=== PATIENT | male | born 1980 | race Hispanic/Latino ===

== ENCOUNTER 2016-04-15 17:18 | Emergency (ER) | payer BC, MEDICAID ==
[2016-04-15 19:23] LABS: Basophils % (Auto) 0.5 % (0.0-1.8); Eosinophils % (Auto) 5.3 % (0.0-4.3); Hematocrit 36.1 % (35.5-45.6); Hemoglobin 11.8 gm/dl (11.8-15.2); Mean Corpuscular HGB Conc 33 % (32-34); Mean Corpuscular Hemoglobin 26 pg (28-32); Mean Corpuscular Volume 80 fl (84-94); Platelet Count 369 K/mm3 (140-440); Red Blood Count 4.52 M/mm3 (3.65-5.03); Red Cell Distribution Width 18.8 % (13.2-15.2); White Blood Count 10.3 K/mm3 (4.5-11.0)
[2016-04-15 19:41] LABS: Alanine Aminotransferase 36 units/L (7-56); Albumin 4.7 g/dL (3.9-5); Albumin/Globulin Ratio 1.3 %; Alkaline Phosphatase 79 units/L (35-129); Anion Gap 20 mmol/L; Bilirubin,Total < 0.2 mg/dL (0.1-1.2); Blood Urea Nitrogen 13 mg/dL (9-20); Calcium 9.6 mg/dL (8.4-10.2); Carbon Dioxide 25 mmol/L (22-30); Glucose 189 mg/dL (75-100); Lipase 68 units/L (13-60); Potassium 3.9 mmol/L (3.6-5.0); Sodium 139 mmol/L (137-145); Total Protein 8.2 g/dL (6.3-8.2)
[2016-04-15 20:08] LABS: Bacteria,Urine 1+ /HPF (Negative); Bilirubin,Urine NEG (Negative); Blood,Urine NEG (Negative); Ketones,Urine TR mg/dL (Negative); Leukocyte Esterase,Urine TR (Negative); Mucus,Urine 1+ /HPF; Nitrite,Urine NEG (Negative); Protein,Urine <15 mg/dL mg/dL (Negative); Urobilinogen,Urine < 2.0 mg/dL (<2.0); WBC,Urine < 1.0 /HPF (0.0-6.0)
[2016-04-15] MEDS ORDERED: ZOFRAN IV ONE (23:08)
[2016-04-15] MEDS ORDERED: DILAUDID IV ONE (23:08)
--- NOTE | 2016-04-15 23:12 | Emergency Department Report ---
HPI - General Chief Complaint: Abdominal Pain Time Seen by Provider: 04/15/16 22:57 - HPI HPI: This is a 36-year-old male who presents to the emergency department from home with complaint of right-sided abdominal pain, nausea, vomiting, diarrhea and fever is been going on since yesterday. Patient has a MAXIMUM TEMPERATURE of 103 but took 1 g of Tylenol around 2 PM and his temperature was still around 99 when he came in through triage. He otherwise has not taken anything else for pain prior to presentation. He has a past medical history of CHF, atrial fibrillation, [id number] diabetes, GERD, gout, previous history of bowel obstruction. He has a past surgical history of pyloroplasty and colon resection, cholecystectomy and appendectomy. While the patient has been here before, he just officially moved up here from [place] 1 week ago and therefore does not have a primary care doctor. He denies any dysuria, discharge , constipation, hematemesis, melanotic or bright red blood per rectum. ED Past Medical Hx - Past Medical History Hx Congestive Heart Failure: Yes Hx Diabetes: Yes Additional medical history: pancreatitis, c-diff, afib, enlarged heart. spinal menengitis. TIA - Surgical History Hx Cholecystectomy: Yes Hx Appendectomy: Yes Additional Surgical History: abd sx 2014 - Social History Smoking Status: Never Smoker Substance Use Type: None - Medications Home Medications: Home Medications Medication Instructions Recorded Confirmed Last Taken Type Ondansetron [Zofran] 4 mg PO Q6HR PRN #20 tablet 04/08/14 02/05/16 1 Day Ago Rx Aspirin [Aspirin BABY CHEW TAB] 81 mg PO QDAY 02/05/16 02/05/16 1 Day Ago History Bethanechol [Urecholine] 25 mg PO Q8HR 02/05/16 02/05/16 1 Day Ago History Buspirone HCl [busPIRone] 15 mg PO QDAY 02/05/16 02/05/16 1 Day Ago History Citalopram Hydrobromide [celeXA] 40 mg PO DAILY 02/05/16 02/05/16 1 Day Ago History Clindamycin [Clindamycin CAP] 300 mg PO Q6H 02/05/16 02/05/16 1 Day Ago History Dicyclomine [Bentyl] 40 mg PO QID #20 tablet 02/05/16 Unknown Rx Fenofibrate [Lofibra] 160 mg PO QDAY 02/05/16 02/05/16 1 Day Ago History Levothyroxine [Synthroid] 25 mcg PO QAM 02/05/16 02/05/16 1 Day Ago History Metoprolol [Lopressor] 25 mg PO BID 02/05/16 02/05/16 1 Day Ago History Nortriptyline HCl [Pamelor] 25 mg PO QDAY 02/05/16 02/05/16 1 Day Ago History Ondansetron [Zofran Odt] 4 mg PO Q8HR #20 tab.rapdis 02/05/16 Unknown Rx Pantoprazole [Protonix] 40 mg PO QDAY 02/05/16 02/05/16 1 Day Ago History Pregabalin [Lyrica] 150 mg PO QDAY 02/05/16 02/05/16 1 Day Ago History Promethazine [Phenergan TAB] 25 mg PO Q6HR PRN 02/05/16 02/05/16 1 Day Ago History QUEtiapine [SEROquel] 300 mg PO BID 02/05/16 02/05/16 1 Day Ago History Ranitidine HCl [Zantac 300 MG TAB] 300 mg PO QPM 02/05/16 02/05/16 1 Day Ago History Ropinirole HCl [Requip] 0.5 mg PO QDAY 02/05/16 02/05/16 1 Day Ago History Tizanidine HCl [Zanaflex] 4 mg PO TID PRN 02/05/16 02/05/16 1 Day Ago History Topiramate [Topamax] 50 mg PO QDAY 02/05/16 02/05/16 1 Day Ago History HYDROcodone/APAP 5-325 [[place] 1 each PO Q6HR PRN #14 tablet 04/16/16 Unknown Rx 5/325] ED Review of Systems ROS: Stated complaint: SEVERE ABD PAIN Other details as noted in HPI Comment: All other systems reviewed and negative Constitutional: chills, fever Eyes: denies: eye pain, eye discharge, vision change ENT: denies: ear pain, throat pain Respiratory: denies: cough, shortness of breath, wheezing Cardiovascular: denies: chest pain, palpitations Gastrointestinal: abdominal pain, nausea, vomiting, diarrhea Genitourinary: denies: urgency, dysuria Musculoskeletal: denies: back pain, joint swelling, arthralgia Skin: denies: rash, lesions Neurological: denies: headache, weakness, paresthesias Physical Exam - Physical Exam Vital Signs: Vital Signs 04/15/16 18:36 Temperature 99.0 F Pulse Rate 110 H Respiratory 18 Rate Blood Pressure 133/99 O2 Sat by Pulse 96 Oximetry Physical Exam: GENERAL: The patient is well-developed well-nourished. HEENT: Normocephalic. Atraumatic. Extraocular motions are intact. Patient has moist mucous membranes. Pupils equal reactive to light bilaterally. NECK: Supple. Trachea is midline. CHEST/LUNGS: Clear to auscultation. There is no respiratory distress noted. HEART/CARDIOVASCULAR: Regular. There is no tachycardia. There is no gallop rub or murmur. ABDOMEN: Abdomen is soft. Patient has tenderness to palpation to the right side of the abdomen. There is mild guarding. No rebound tenderness. Patient has normal bowel sounds. There is no abdominal distention. Obese habitus. SKIN: There is no rash. Warm and dry. NEURO: The patient is awake, alert, and oriented. The patient is cooperative. The patient has no focal neurologic deficits. The patient has normal speech. MUSCULOSKELETAL: There is no tenderness or deformity. There is no limitation range of motion. There is no evidence of acute injury. ED Course Vital Signs 04/15/16 18:36 Temperature 99.0 F Pulse Rate 110 H Respiratory 18 Rate Blood Pressure 133/99 O2 Sat by Pulse 96 Oximetry ED Medical Decision Making - Lab Data Result diagrams: 04/15/16 19:01 04/15/16 19:01 - Radiology Data Radiology results: report reviewed CT of the abdomen and pelvis with IV contrast shows no CT evidence of distinct acute findings. There is a right renal cyst that is unchanged. There is a small 2 mm nonobstructing stone in the left kidney but no hydronephrosis or obstructing stone. Mild fatty infiltration of the liver. There is a small shallow anterior abdominal ventral hernia with fat only. - Medical Decision Making 36-year-old male presents the emergency department with right-sided abdominal pain, nausea, vomiting and diarrhea. Physical exam the patient does have some tenderness to palpation in that region as well as some mild guarding but no peritoneal signs. Patient had some very mild tachycardia through triage but otherwise his vital signs are stable throughout his ED course. The patient's labs are mostly unremarkable other than some mild elevation in lipase. Due to the patient's discomfort level a CT of the abdomen and pelvis was done with IV contrast. There was no distinct acute findings of the abdomen and pelvis seen and especially no etiology of the patient's discomfort. He was given some pain medication in the emergency department as well as some mild IV fluid resuscitation and he did get some relief. Patient was discharged home with some pain medication and referrals for both primary care and gastroenterology. He will return to the ER with any worsening of his symptoms or any acute distress. - Differential Diagnosis colitis, diverticulitis, bowel obstruction, food poisoning Critical Care Time: No Critical care attestation.: If time is entered above; I have spent that time in minutes in the direct care of this critically ill patient, excluding procedure time. 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 Return to the emergency department with any worsening of your symptoms or any acute distress. You've been prescribed a medication that is sedating. Therefore this medication cannot be mixed with alcohol, or taken prior to driving, working, or being responsible for children. Prescriptions: HYDROcodone/APAP 5-325 [[place] 5/325] 1 each PO Q6HR PRN #14 tablet PRN Reason: Pain Referrals: CLAUDIA LOZANO [Other] - 3-5 Days JUNAID FINNEGAN MD [Staff Physician] - 3-5 Days GIA JOHNSON MD [Staff Physician] - 3-5 Days Time of Disposition: 01:43
[2016-04-15] MEDS ORDERED: NACL ONE (23:13)
--- NOTE | 2016-04-16 00:51 | Cat Scan Report ---
FINAL REPORT PROCEDURE: CT ABDOMEN PELVIS W CON TECHNIQUE: Computerized axial tomography of the abdomen and pelvis was performed after the IV injection of iodinated nonionic contrast. Oral contrast was not given. HISTORY: Right-sided abdominal pain COMPARISON: Prior abdomen pelvic CT scan of February 05, 2016 FINDINGS: Visualized lower thorax: No significant abnormality. Liver: There is mild diffuse fatty infiltration, unchanged. Spleen: Normal size and attenuation. Gallbladder and biliary system: Prior cholecystectomy. Pancreas: Normal. Adrenals: Normal. Kidneys: There is a 3.6 centimeter fluid density cyst in the right kidney similar to prior exam. There is a tiny 2 millimeter nonobstructing stone in the left kidney, unchanged. The kidneys appear unremarkable otherwise. There is no CT evidence of obstructing renal or ureteral stone or hydronephrosis. GI tract: The bowel appears unremarkable when considering lack of oral contrast. The appendix is not identified and there are surgical sutures in the right lower quadrant. Therefore the appendix may have been removed.. Lymph nodes and mesentery: Normal. Vasculature: Normal. Bladder: Normal. Reproductive organs: Normal. Peritoneum: No free fluid. Musculoskeletal structures: There is minimal curvature of lower thoracic spine to the right.. Other: In the midline of the upper anterior abdominal wall in the epigastric region there is a small shallow ventral hernia measuring 3.5 centimeters across in about 2.3 centimeters deep. This contains fat only and appears unchanged from the prior exam.. IMPRESSION: 1. There is no CT evidence of distinct acute finding. 2. Right renal cyst, unchanged. 3. There is a small 2 millimeter nonobstructing stone in the left kidney, unchanged. There is no CT evidence of hydronephrosis or obstructing ureteral stone on either side. 4. Mild fatty infiltration of liver. 5. There is a small shallow anterior abdominal wall ventral hernia containing fat only in the upper abdomen midline in the epigastric area, unchanged. 6. The appendix is not identified and there are surgical sutures in the right lower quadrant. Therefore the appendix may have been removed.
[2016-04-16] MEDS ORDERED: DILAUDID IV ONE (00:55)
[2016-04-16 01:28] VITALS: BP 117/68
== END 2016-04-16 02:16 | disposition home or self-care (01) ==
LOC: ED 17:18
DX: K76.0 Fatty (change of) liver, not elsewhere classified (principal); N28.1 Cyst of kidney, acquired; I50.9 Heart failure, unspecified; E11.9 Type 2 diabetes mellitus without complications; K21.9 Gastro-esophageal reflux disease without esophagitis; M10.9 Gout, unspecified; Z86.73 Personal history of transient ischemic attack (TIA), and cerebral infarction without residual deficits; Z90.49 Acquired absence of other specified parts of digestive tract; Z79.82 Long term (current) use of aspirin
CPT/HCPCS: 36415; 74177; 80053; 81001; 83690; 85025; 96374; 96375; 99284; J1170; J2405; Q9967

== ENCOUNTER 2016-04-18 19:17 | Emergency (ER) | payer BC, MEDICAID ==
[2016-04-18 19:58] VITALS: BP 163/85
[2016-04-18 22:07] LABS: Bacteria,Urine 1+ /HPF (Negative); Bilirubin,Urine NEG (Negative); Blood,Urine NEG (Negative); Ketones,Urine NEG (Negative); Leukocyte Esterase,Urine NEG (Negative); Mucus,Urine 1+ /HPF; Nitrite,Urine NEG (Negative); Protein,Urine <15 mg/dL mg/dL (Negative); Urobilinogen,Urine < 2.0 mg/dL (<2.0)
--- NOTE | 2016-04-20 14:58 | ED Elopement Review ---
ED Pt Elopement review - Results review Lab results: Laboratory Tests 04/18/16 21:31 Urine Color Yellow Urine Turbidity Clear Urine pH 6.0 Ur Specific [place] 1.023 Urine Protein <15 mg/dl Urine Glucose (UA) 50 Urine Ketones Neg Urine Blood Neg Urine Nitrite Neg Urine Bilirubin Neg Urine Urobilinogen < 2.0 Ur Leukocyte Esterase Neg Urine WBC (Auto) 1.0 Urine RBC (Auto) 5.0 U Epithel Cells (Auto) < 1.0 Urine Bacteria (Auto) 1+ Calcium Oxalate Crystal 1+ Urine Mucus 1+ - Call Back decision Pt Call Back Decision: No action required
== END 2016-04-18 23:52 | disposition left against medical advice (07) ==
LOC: ED 19:17
DX: R10.31 Right lower quadrant pain (principal); R11.2 Nausea with vomiting, unspecified; R33.9 Retention of urine, unspecified; Z53.21 Procedure and treatment not carried out due to patient leaving prior to being seen by health care provider
CPT/HCPCS: 81001

== ENCOUNTER 2016-06-16 16:01 | Emergency (ER) | payer BC, MEDICAID | END 2016-06-16 16:15 | disposition left against medical advice (07) | LOC: ED 16:01 | DX: R10.9 Unspecified abdominal pain (principal); Z53.21 Procedure and treatment not carried out due to patient leaving prior to being seen by health care provider ==

== ENCOUNTER 2016-07-04 03:21 | Emergency (ER) | payer BC, MEDICAID ==
[2016-07-04 04:03] VITALS: BP 152/77
[2016-07-04 04:38] LABS: Basophils % (Auto) 0.5 % (0.0-1.8); Eosinophils % (Auto) 3.6 % (0.0-4.3); Hematocrit 33.6 % (35.5-45.6); Hemoglobin 11.1 gm/dl (11.8-15.2); Mean Corpuscular HGB Conc 33 % (32-34); Mean Corpuscular Hemoglobin 26 pg (28-32); Mean Corpuscular Volume 79 fl (84-94); Platelet Count 381 K/mm3 (140-440); Red Blood Count 4.26 M/mm3 (3.65-5.03); Red Cell Distribution Width 18.3 % (13.2-15.2); White Blood Count 10.9 K/mm3 (4.5-11.0)
[2016-07-04 04:50] LABS: Alanine Aminotransferase 36 units/L (7-56); Albumin/Globulin Ratio 0.9 %; Alkaline Phosphatase 84 units/L (35-129); Anion Gap 17 mmol/L; BUN/Creatinine Ratio 12.22; Blood Urea Nitrogen 11 mg/dL (9-20); Calcium 9.4 mg/dL (8.4-10.2); Carbon Dioxide 24 mmol/L (22-30); Chloride 99.5 mmol/L (98-107); Glucose 175 mg/dL (75-100); Lipase 95 units/L (13-60); Potassium 4.1 mmol/L (3.6-5.0); Sodium 136 mmol/L (137-145); Total Protein 8.3 g/dL (6.3-8.2)
[2016-07-04 05:09] LABS: Bilirubin,Urine NEG (Negative); Blood,Urine NEG (Negative); Ketones,Urine NEG (Negative); Leukocyte Esterase,Urine TR (Negative); Nitrite,Urine NEG (Negative); Protein,Urine <15 mg/dL mg/dL (Negative); Urobilinogen,Urine < 2.0 mg/dL (<2.0)
--- NOTE | 2016-07-07 19:27 | ED Elopement Review ---
ED Pt Elopement review - Results review Lab results: Laboratory Tests 07/04/16 07/04/16 07/04/16 04:05 04:05 04:35 WBC 10.9 RBC 4.26 Hgb 11.1 L Hct 33.6 L MCV 79 L MCH 26 L MCHC 33 RDW 18.3 H Plt Count 381 Lymph % (Auto) 15.1 Wilkin % (Auto) 6.5 Eos % (Auto) 3.6 Baso % (Auto) 0.5 Lymph # 1.7 [place] # 0.7 Eos # 0.4 Baso # 0.1 Seg Neutrophils % 74.3 H Seg Neutrophils # 8.1 H Sodium 136 L Potassium 4.1 Chloride 99.5 Carbon Dioxide 24 Anion Gap 17 BUN 11 Creatinine 0.9 Estimated GFR > 60 BUN/Creatinine Ratio 12.22 Glucose 175 H Calcium 9.4 Total Bilirubin 0.20 AST 30 ALT 36 Alkaline Phosphatase 84 Total Protein 8.3 H Albumin 4.0 Albumin/Globulin Ratio 0.9 Lipase 95 H Urine Color Yellow Urine Turbidity Turbid Urine pH 7.0 Ur Specific [place] 1.016 Urine Protein <15 mg/dl Urine Glucose (UA) Neg Urine Ketones Neg Urine Blood Neg Urine Nitrite Neg Urine Bilirubin Neg Urine Urobilinogen < 2.0 Ur Leukocyte Esterase Tr Urine WBC (Auto) 2.0 Urine RBC (Auto) 1.0 Amorphous Crystals 3+ - Call Back decision Pt Call Back Decision: No action required
== END 2016-07-04 04:15 | disposition left against medical advice (07) ==
LOC: ED 03:21
DX: R10.9 Unspecified abdominal pain (principal); R11.11 Vomiting without nausea; R19.7 Diarrhea, unspecified; Z53.21 Procedure and treatment not carried out due to patient leaving prior to being seen by health care provider
CPT/HCPCS: 36415; 80053; 81001; 83690; 85025

== ENCOUNTER 2016-10-02 22:12 | Emergency (ER) | payer BC, MEDICAID ==
[2016-10-02 23:31] LABS: Basophils % (Auto) 0.5 % (0.0-1.8); Eosinophils % (Auto) 3.8 % (0.0-4.3); Hematocrit 40.4 % (35.5-45.6); Hemoglobin 13.5 gm/dl (11.8-15.2); Mean Corpuscular HGB Conc 33 % (32-34); Mean Corpuscular Hemoglobin 29 pg (28-32); Mean Corpuscular Volume 88 fl (84-94); Platelet Count 324 K/mm3 (140-440); Red Cell Distribution Width 19.5 % (13.2-15.2); White Blood Count 9.1 K/mm3 (4.5-11.0)
[2016-10-02] MEDS ORDERED: ZOFRAN IV ONE (23:39)
[2016-10-02] MEDS ORDERED: DILAUDID IV ONE (23:39)
[2016-10-02 23:47] LABS: Alanine Aminotransferase 35 units/L (7-56); Albumin 4.4 g/dL (3.9-5); Albumin/Globulin Ratio 1.2 %; Alkaline Phosphatase 79 units/L (35-129); Anion Gap 21 mmol/L; Blood Urea Nitrogen 7 mg/dL (9-20); Calcium 9.7 mg/dL (8.4-10.2); Carbon Dioxide 23 mmol/L (22-30); Chloride 98.5 mmol/L (98-107); Glucose 174 mg/dL (75-100); Lipase 67 units/L (13-60); Potassium 3.7 mmol/L (3.6-5.0); Sodium 139 mmol/L (137-145); Total Protein 8.2 g/dL (6.3-8.2)
--- NOTE | 2016-10-03 00:09 | Emergency Department Report ---
HPI - General Chief Complaint: Abdominal Pain Time Seen by Provider: 10/02/16 23:18 - HPI HPI: This is a 36-year-old male presents to the emergency department from home with complaint of left upper quadrant abdominal pain or possibly some pain just underneath the left pectoral with some radiation towards the back is been going on since about 2 AM last night, almost 24 hours. It is associated with some nausea, vomiting and diarrhea. He has been unable to tolerate liquids or solids. He has a past medical history of CHF, diabetes, GERD, hypertension, paroxysmal A. fib, insulin-dependent diabetes, hyperthyroidism. He has a past surgical history of appendectomy and cholecystectomy. He denies any fever, dysuria, discharge. He has not been able to take anything for symptoms prior to presentation. He has a primary care physician but has not been able to see them regarding his symptoms. No recent travel or sick contacts at home. ED Past Medical Hx - Past Medical History Hx Hypertension: Yes Hx Congestive Heart Failure: Yes Hx Diabetes: Yes Hx GERD: Yes Additional medical history: pancreatitis, c-diff, afib, enlarged heart. spinal menengitis. TIA. gout, neuropathy, scoliosis, hyperthyroid - Surgical History Hx Cholecystectomy: Yes Hx Appendectomy: Yes Additional Surgical History: colon resection, GB, - Social History Smoking Status: Never Smoker Substance Use Type: None - Medications Home Medications: Home Medications Medication Instructions Recorded Confirmed Last Taken Type Ondansetron [Zofran] 4 mg PO Q6HR PRN #20 tablet 04/08/14 02/05/16 1 Day Ago Rx Aspirin [Aspirin BABY CHEW TAB] 81 mg PO QDAY 02/05/16 02/05/16 1 Day Ago History Bethanechol [Urecholine] 25 mg PO Q8HR 02/05/16 02/05/16 1 Day Ago History Buspirone HCl [busPIRone] 15 mg PO QDAY 02/05/16 02/05/16 1 Day Ago History Citalopram Hydrobromide [celeXA] 40 mg PO DAILY 02/05/16 02/05/16 1 Day Ago History Clindamycin [Clindamycin CAP] 300 mg PO Q6H 02/05/16 02/05/16 1 Day Ago History Dicyclomine [Bentyl] 40 mg PO QID #20 tablet 02/05/16 Unknown Rx Fenofibrate [Lofibra] 160 mg PO QDAY 02/05/16 02/05/16 1 Day Ago History Levothyroxine [Synthroid] 25 mcg PO QAM 02/05/16 02/05/16 1 Day Ago History Metoprolol [Lopressor] 25 mg PO BID 02/05/16 02/05/16 1 Day Ago History Nortriptyline HCl [Pamelor] 25 mg PO QDAY 02/05/16 02/05/16 1 Day Ago History Ondansetron [Zofran Odt] 4 mg PO Q8HR #20 tab.rapdis 02/05/16 Unknown Rx Pantoprazole [Protonix] 40 mg PO QDAY 02/05/16 02/05/16 1 Day Ago History Pregabalin [Lyrica] 150 mg PO QDAY 02/05/16 02/05/16 1 Day Ago History Promethazine [Phenergan TAB] 25 mg PO Q6HR PRN 02/05/16 02/05/16 1 Day Ago History QUEtiapine [SEROquel] 300 mg PO BID 02/05/16 02/05/16 1 Day Ago History Ranitidine HCl [Zantac 300 MG TAB] 300 mg PO QPM 02/05/16 02/05/16 1 Day Ago History Ropinirole HCl [Requip] 0.5 mg PO QDAY 02/05/16 02/05/16 1 Day Ago History Tizanidine HCl [Zanaflex] 4 mg PO TID PRN 02/05/16 02/05/16 1 Day Ago History Topiramate [Topamax] 50 mg PO QDAY 02/05/16 02/05/16 1 Day Ago History HYDROcodone/APAP 5-325 [[place] 1 each PO Q6HR PRN #14 tablet 04/16/16 Unknown Rx 5/325] ED Review of Systems ROS: Stated complaint: ABD PAIN/DIARRHEA Other details as noted in HPI Comment: All other systems reviewed and negative Constitutional: denies: chills, fever Eyes: denies: eye pain, eye discharge, vision change ENT: denies: ear pain, throat pain Respiratory: denies: cough, shortness of breath, wheezing Cardiovascular: denies: chest pain, palpitations Gastrointestinal: abdominal pain, nausea, vomiting, diarrhea Genitourinary: denies: urgency, dysuria Musculoskeletal: denies: back pain, joint swelling, arthralgia Skin: denies: rash, lesions Neurological: denies: headache, weakness, paresthesias Physical Exam - Physical Exam Vital Signs: Vital Signs 10/02/16 22:20 Temperature 98.8 F Pulse Rate 103 H Respiratory 18 Rate Blood Pressure 141/98 O2 Sat by Pulse 96 Oximetry Physical Exam: GENERAL: The patient is well-developed well-nourished. HEENT: Normocephalic. Atraumatic. Extraocular motions are intact. Patient has moist mucous membranes. Pupils equal reactive to light bilaterally. NECK: Supple. Trachea is midline. CHEST/LUNGS: Clear to auscultation. There is no respiratory distress noted. HEART/CARDIOVASCULAR: Regular. There is no tachycardia. There is no gallop rub or murmur. ABDOMEN: Abdomen is soft. There is left upper quadrant tenderness to palpation of the abdomen. No guarding or rebound tenderness. No peritoneal signs. Morbidly obese habitus. Patient has normal bowel sounds. There is no abdominal distention. SKIN: Skin is warm and dry. NEURO: The patient is awake, alert, and oriented. The patient is cooperative. The patient has no focal neurologic deficits. The patient has normal speech. MUSCULOSKELETAL: There is no tenderness or deformity. There is no limitation range of motion. There is no evidence of acute injury. ED Course Vital Signs 10/02/16 22:20 Temperature 98.8 F Pulse Rate 103 H Respiratory 18 Rate Blood Pressure 141/98 O2 Sat by Pulse 96 Oximetry ED Medical Decision Making - Lab Data Result diagrams: 10/02/16 22:27 10/02/16 22:27 - EKG Data -: EKG Interpreted by Me EKG shows normal: sinus rhythm, axis, intervals, QRS complexes, ST-T waves Rate: normal - EKG Data When compared to previous EKG there are: previous EKG unavailable Interpretation: normal EKG - Radiology Data Radiology results: report reviewed, image reviewed interpreted by me: Chest x-ray did not show any acute process. Heart is normal shape and size. No effusions. No pneumothorax. No signs of pneumonia seen. Abdominal x-ray shows nonspecific nonobstructive bowel gas. CT of the abdomen and pelvis with IV contrast does not show any intestinal or urinary tract obstruction. There is fatty infiltration of liver. Previous cholecystectomy. - Medical Decision Making 36-year-old male presents with 24-36 hour history of left upper quadrant abdominal pain. Labs are mostly unremarkable. There is a slight elevation in the lipase level. No leukocytosis, electrolyte abnormalities, renal insufficiency. Bilirubin and LFTs are normal. Vital signs stable including being afebrile. Abdominal x-ray does not show any acute process. Since it is the left upper quadrant of the abdomen, he also received an EKG which did not show any signs of ST elevation MA, ischemia or dysrhythmia. Chest x-ray did not show any acute process. Labs also included a negative troponin. Because of the patient's complaint of significant abdominal pain, a CT of the abdomen and pelvis with IV contrast was done that did not show any acute process or etiology of the patient's symptoms. I looked the patient up on the [facility] prescription monitoring program and he has a history of filling large quantities of narcotic medication through one of his physicians in [place]. While I did give the patient some pain control within the emergency department, he was not prescribed any medication for home as he should have enough based on his previous prescriptions. Labs are mostly unremarkable. CT did not show any acute process. Patient seen and but oriented. Stable. He appears safe for discharge home at this time. - Differential Diagnosis pancreatitis, hepatitis, gastritis, MA Critical Care Time: No Critical care attestation.: If time is entered above; I have spent that time in minutes in the direct care of this critically ill patient, excluding procedure time. 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 Return to the emergency department with any acute distress. Referrals: PRIMARY CARE, [Primary Care Provider] - [facility] Time of Disposition: 04:12
[2016-10-03] MEDS ORDERED: DILAUDID IV ONE ×2 (01:32→03:27)
[2016-10-03] MEDS ORDERED: NACL ONE (02:11)
--- NOTE | 2016-10-03 03:08 | Cat Scan Report ---
FINAL REPORT PROCEDURE: CT ABDOMEN PELVIS W CON TECHNIQUE: Computerized axial tomography of the abdomen and pelvis was performed after the IV injection of iodinated nonionic contrast. HISTORY: Abd pain LUQ PAIN GOING INTO BACK COMPARISON: 04/15/2016 FINDINGS: Visualized lower thorax: No significant abnormality. Liver: The liver is fatty infiltrated. Spleen: Normal size and attenuation. Gallbladder and biliary system: The gallbladder is absent. No dilatation of the biliary ductal system. Pancreas: Normal. Adrenals: Normal. Kidneys: Both kidneys have normal size. No hydronephrosis. There is a 2 centimeter cyst in the anterior right renal cortex.. GI tract: The stomach is normal. The small bowel has a normal caliber. No obstruction, ileus or enteritis. The cecum is normal. There has been surgery in the right lower quadrant. The colon is normal. Moderate fecal debris in the distal colon.. Lymph nodes and mesentery: Normal. Vasculature: Normal. Bladder: Normal. Reproductive organs: Normal. Peritoneum: No free fluid. Musculoskeletal structures: No significant abnormality. Other: None. IMPRESSION: There is no evidence of intestinal or urinary tract obstruction. No ileus or enteritis. Moderate fecal debris distal colon, constipation is possible. Fatty infiltration of the liver is noted. There is been previous cholecystectomy.
[2016-10-03] MEDS ORDERED: ZOFRAN IV ONE (03:27)
[2016-10-03 04:35] VITALS: BP 129/76
--- NOTE | 2016-10-03 07:29 | XRay Report ---
Abdominal series: History: Upper abdominal pain. Findings: No acute cardiopulmonary changes. No free intraperitoneal. No bowel distention or wall thickening. No radiopaque calculus or abnormal calcification. Impression: Essentially negative study.
== END 2016-10-03 04:15 | disposition home or self-care (01) ==
LOC: ED 22:12
DX: R10.12 Left upper quadrant pain (principal); R11.2 Nausea with vomiting, unspecified; I11.0 Hypertensive heart disease with heart failure; I50.9 Heart failure, unspecified; E11.40 Type 2 diabetes mellitus with diabetic neuropathy, unspecified; K21.9 Gastro-esophageal reflux disease without esophagitis; E05.90 Thyrotoxicosis, unspecified without thyrotoxic crisis or storm; Z79.82 Long term (current) use of aspirin
CPT/HCPCS: 36415; 74022; 74177; 80053; 83690; 84484; 85025; 93005; 93010; 96374; 96375; 96376; 99284; J1170; J2405; Q9967

== ENCOUNTER 2016-10-04 23:09 | Emergency (ER) | payer BC, MEDICAID ==
[2016-10-05] MEDS ORDERED: DILAUDID IV SCH (00:14)
[2016-10-05] MEDS ORDERED: ZOFRAN IV ONE (00:17)
[2016-10-05 00:22] LABS: Basophils % (Auto) 0.5 % (0.0-1.8); Hematocrit 37.2 % (35.5-45.6); Hemoglobin 12.7 gm/dl (11.8-15.2); Mean Corpuscular HGB Conc 34 % (32-34); Mean Corpuscular Hemoglobin 30 pg (28-32); Mean Corpuscular Volume 87 fl (84-94); Platelet Count 294 K/mm3 (140-440); Red Blood Count 4.29 M/mm3 (3.65-5.03); Red Cell Distribution Width 19.7 % (13.2-15.2); White Blood Count 9.3 K/mm3 (4.5-11.0)
[2016-10-05 01:32] LABS: Anion Gap 19 mmol/L; BUN/Creatinine Ratio 8.75; Blood Urea Nitrogen 7 mg/dL (9-20); Calcium 9.4 mg/dL (8.4-10.2); Carbon Dioxide 24 mmol/L (22-30); Chloride 100.4 mmol/L (98-107); Glucose 197 mg/dL (75-100); Potassium 3.8 mmol/L (3.6-5.0); Sodium 140 mmol/L (137-145)
--- NOTE | 2016-10-05 01:45 | Emergency Department Report ---
HPI - General Chief Complaint: Chest Pain Time Seen by Provider: 10/05/16 00:09 - HPI HPI: Patient in the ED with epigastric abdominal discomfort with left-sided chest pain. Patient states pain is 5 out of 10, without radiation. Patient with multiple medical history included diabetes, high blood pressure, chronic pancreatitis. Patient denies any nausea, vomiting but has diarrhea which she said is chronic. Patient denies any fever, chills, night sweats. ED Past Medical Hx - Past Medical History Previous Medical History?: Yes Hx Hypertension: Yes Hx Congestive Heart Failure: Yes Hx Diabetes: Yes Hx GERD: Yes Additional medical history: pancreatitis, c-diff, afib, enlarged heart. spinal menengitis. TIA. gout, neuropathy, scoliosis, hyperthyroid - Surgical History Past Surgical History?: Yes Hx Cholecystectomy: Yes Hx Appendectomy: Yes Additional Surgical History: colon resection, GB, - Social History Smoking Status: Never Smoker Substance Use Type: None - Medications Home Medications: Home Medications Medication Instructions Recorded Confirmed Last Taken Type Ondansetron [Zofran] 4 mg PO Q6HR PRN #20 tablet 04/08/14 10/05/16 1 Day Ago Rx Aspirin [Aspirin BABY CHEW TAB] 81 mg PO QDAY 02/05/16 10/05/16 1 Day Ago History Bethanechol [Urecholine] 25 mg PO Q8HR 02/05/16 10/05/16 1 Day Ago History Buspirone HCl [busPIRone] 15 mg PO QDAY 02/05/16 10/05/16 1 Day Ago History Citalopram Hydrobromide [celeXA] 40 mg PO DAILY 02/05/16 10/05/16 1 Day Ago History Clindamycin [Clindamycin CAP] 300 mg PO Q6H 02/05/16 10/05/16 1 Day Ago History Dicyclomine [Bentyl] 40 mg PO QID #20 tablet 02/05/16 10/05/16 Unknown Rx Fenofibrate [Lofibra] 160 mg PO QDAY 02/05/16 10/05/16 1 Day Ago History Levothyroxine [Synthroid] 25 mcg PO QAM 02/05/16 10/05/16 1 Day Ago History Metoprolol [Lopressor] 25 mg PO BID 02/05/16 10/05/16 1 Day Ago History Nortriptyline HCl [Pamelor] 25 mg PO QDAY 02/05/16 10/05/16 1 Day Ago History Ondansetron [Zofran Odt] 4 mg PO Q8HR #20 tab.rapdis 02/05/16 10/05/16 Unknown Rx Pantoprazole [Protonix] 40 mg PO QDAY 02/05/16 10/05/16 1 Day Ago History Pregabalin [Lyrica] 150 mg PO QDAY 02/05/16 10/05/16 1 Day Ago History Promethazine [Phenergan TAB] 25 mg PO Q6HR PRN 02/05/16 10/05/16 1 Day Ago History QUEtiapine [SEROquel] 300 mg PO BID 02/05/16 10/05/16 1 Day Ago History Ranitidine HCl [Zantac 300 MG TAB] 300 mg PO QPM 02/05/16 10/05/16 1 Day Ago History Ropinirole HCl [Requip] 0.5 mg PO QDAY 02/05/16 10/05/16 1 Day Ago History Tizanidine HCl [Zanaflex] 4 mg PO TID PRN 02/05/16 10/05/16 1 Day Ago History Topiramate [Topamax] 50 mg PO QDAY 02/05/16 10/05/16 1 Day Ago History HYDROcodone/APAP 5-325 [[place] 1 each PO Q6HR PRN #14 tablet 04/16/16 10/05/16 Unknown Rx 5/325] ED Review of Systems ROS: Stated complaint: ABD PAIN/N/V/D Other details as noted in HPI Comment: All other systems reviewed and negative Cardiovascular: chest pain Gastrointestinal: abdominal pain Physical Exam - Physical Exam Vital Signs: Vital Signs 10/04/16 10/05/16 23:11 01:00 Temperature 98.0 F Pulse Rate 118 H 108 H Respiratory 17 Rate Blood Pressure 160/87 Blood Pressure 131/65 [Left] O2 Sat by Pulse 96 95 Oximetry Physical Exam: Gen. alert and oriented 3 in no distress Head atraumatic normocephalic Eyes PERR LA EOMI Chest regular rate and rhythm normal S1-S2 lungs clear bilaterally Abdomen soft nondistended Back no point tenderness paravertebral tenderness Neuro no focal deficit. Psych normal mood. ED Course Vital Signs 10/04/16 10/05/16 23:11 01:00 Temperature 98.0 F Pulse Rate 118 H 108 H Respiratory 17 Rate Blood Pressure 160/87 Blood Pressure 131/65 [Left] O2 Sat by Pulse 96 95 Oximetry ED Medical Decision Making - Lab Data Result diagrams: 10/04/16 23:40 10/04/16 23:40 Critical care attestation.: If time is entered above; I have spent that time in minutes in the direct care of this critically ill patient, excluding procedure time. ED Disposition Clinical Impression: Chronic pain Disposition: DC-01 TO HOME OR SELFCARE Is pt being admited?: No Does the pt Need Aspirin: No Condition: Stable Instructions: Chronic Pain (ED) Referrals: PRIMARY CARE, [Primary Care Provider] - 3-5 Days
[2016-10-05] MEDS ORDERED: DILAUDID IV ONE (01:50)
[2016-10-05 02:17] VITALS: BP 140/74
[2016-10-05 02:32] LABS: Amylase 45 units/L (27-131); Lipase 67 units/L (13-60)
--- NOTE | 2016-10-05 07:30 | XRay Report ---
AP CHEST: HISTORY: chest pain AP view of the chest demonstrates a normal mediastinal and cardiac contour with clear lungs and normal bony and soft tissue structures. IMPRESSION: Unremarkable AP chest.
== END 2016-10-05 02:46 | disposition home or self-care (01) ==
LOC: ED 23:09
DX: G89.29 Other chronic pain (principal); I10 Essential (primary) hypertension; I50.9 Heart failure, unspecified; E11.9 Type 2 diabetes mellitus without complications; K21.9 Gastro-esophageal reflux disease without esophagitis; M41.9 Scoliosis, unspecified; Z86.73 Personal history of transient ischemic attack (TIA), and cerebral infarction without residual deficits; Z79.82 Long term (current) use of aspirin
CPT/HCPCS: 36415; 71010; 80048; 82150; 83690; 84484; 85025; 93005; 93010; 96374; 96375; 96376; 99285; J1170; J2405

== ENCOUNTER 2016-10-14 02:02 | Emergency (ER) | payer BC, MEDICAID ==
[2016-10-14] MEDS ORDERED: NACL 0.9% 1000 ML 1,000 ML IV ONE (02:22)
[2016-10-14 03:20] LABS: Basophils % (Auto) 0.3 % (0.0-1.8); Eosinophils % (Auto) 3.9 % (0.0-4.3); Hematocrit 38.6 % (35.5-45.6); Hemoglobin 13.1 gm/dl (11.8-15.2); Mean Corpuscular HGB Conc 34 % (32-34); Mean Corpuscular Hemoglobin 29 pg (28-32); Mean Corpuscular Volume 86 fl (84-94); Platelet Count 302 K/mm3 (140-440); Red Blood Count 4.49 M/mm3 (3.65-5.03); Red Cell Distribution Width 18.6 % (13.2-15.2); White Blood Count 12.4 K/mm3 (4.5-11.0)
[2016-10-14 03:30] LABS: INR 1.01 (0.87-1.13)
[2016-10-14 03:43] LABS: Alanine Aminotransferase 26 units/L (7-56); Albumin 4.2 g/dL (3.9-5); Albumin/Globulin Ratio 1.1 %; Alkaline Phosphatase 76 units/L (35-129); Anion Gap 22 mmol/L; BUN/Creatinine Ratio 12.85; Bilirubin,Total < 0.20 mg/dL (0.1-1.2); Blood Urea Nitrogen 9 mg/dL (9-20); Calcium 9.5 mg/dL (8.4-10.2); Carbon Dioxide 23 mmol/L (22-30); Chloride 100.7 mmol/L (98-107); Glucose 100 mg/dL (75-100); Lipase 70 units/L (13-60); Potassium 3.7 mmol/L (3.6-5.0); Sodium 142 mmol/L (137-145); Total Protein 7.9 g/dL (6.3-8.2)
--- NOTE | 2016-10-14 03:59 | XRay Report ---
FINAL REPORT PROCEDURE: XR CHEST ROUTINE 2V TECHNIQUE: PA and lateral chest radiographs were obtained. CPT 15115 HISTORY: PAIN COMPARISON: No prior studies are available for comparison. FINDINGS: Heart: Normal. Mediastinum/Vessels: Normal. Lungs/Pleural space: Normal. Bony thorax: No acute osseous abnormality. Other: IMPRESSION: Normal examination.
[2016-10-14] MEDS ORDERED: ZOFRAN IV ONE (04:10)
[2016-10-14] MEDS ORDERED: DILAUDID IV ONE ×2 (04:10→05:34)
[2016-10-14] MEDS ORDERED: PROTONIX IV ONE (04:11)
[2016-10-14] MEDS ORDERED: PHENERGAN PO ONE (04:55)
[2016-10-14] MEDS ORDERED: NACL 0.9% 500 ML 500 ML IV ONE (04:55)
--- NOTE | 2016-10-14 05:09 | Emergency Department Report ---
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 difficile, and previous history appendectomy, cholecystectomy, partial stomach resection, colon resection secondary to benign mass causing obstruction presents to the hospital complaining the left upper quadrant epigastric pain 2 days. Pain radiates to the back, rated 10/10 in intensity, constant with associated nausea, vomiting and by mouth intolerance. Diarrhea also reported. Symptoms similarity to previous pancreatitis episodes in the past. Denies alcohol use. Patient initially had nonbloody vomiting 7-8 episodes a day had 3 episodes of hematemesis today. He denies melena, hematochezia, or fever. On October 07 patient was diagnosed with a right lung PE by CT angiogram chest. Patient was started on Eliquis. Patient continues to have pleuritic right sided chest pain but denies significant shortness of breath. Previous previous medical records reviewed. Patient has had multiple visits for abdominal pain, nausea, and vomiting including 2 visits this month. Patient was seen here October 02, and October 04. He had a CT abdomen and pelvis IV contrast October 02 without any acute findings. 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 Patient has not recently had an endoscopy or does not have a gI md Severity scale (0 -10): 10 - Related Data Home Medications Medication Instructions Recorded Confirmed Last Taken Apixaban [Eliquis] 5 mg PO BID 10/14/16 10/14/16 10/13/16 Citalopram Hydrobromide [celeXA] 40 mg PO DAILY 10/14/16 10/14/16 10/13/16 Fenofibrate [Lofibra] 160 mg PO QDAY 10/14/16 10/14/16 10/13/16 Insulin Glargine [Lantus] 20 unit SUB-Q QHS 10/14/16 10/14/16 10/13/16 Insulin Lispro [Humalog 100 10 units SQ TID 10/14/16 10/14/16 10/13/16 UNITS/ML Kwikpen] L.acidoph,Paracasei, B.lactis 1 each PO BID 10/14/16 10/14/16 10/13/16 [Probiotic] Levothyroxine [Synthroid] 25 mcg PO QAM 10/14/16 10/14/16 10/13/16 Metoprolol Xl [Metoprolol 25 mg PO BID 10/14/16 10/14/16 10/13/16 SUCCINATE ER TAB] Nortriptyline HCl [Pamelor] 25 mg PO DAILY 10/14/16 10/14/16 10/13/16 Ondansetron [Zofran Odt] 4 mg PO PRN 10/14/16 10/14/16 10/13/16 PHENobarbital 60 mg PO TID 10/14/16 10/14/16 10/13/16 Pantoprazole [Protonix] 40 mg PO QDAY 10/14/16 10/14/16 10/13/16 Pregabalin [Lyrica] 200 mg PO BID 10/14/16 10/14/16 10/13/16 Promethazine [Phenergan TAB] 25 mg PO Q6HR PRN 10/14/16 10/14/16 10/13/16 Quetiapine Fumarate [SEROquel] 50 mg PO QDAY 10/14/16 10/14/16 10/13/16 Ranitidine HCl [Zantac 150 MG TAB] 300 mg PO DAILY 10/14/16 10/14/16 10/13/16 Ropinirole HCl [Requip] 50 mg PO QHS 10/14/16 10/14/16 10/13/16 Topiramate [Topamax] 50 mg PO DAILY 10/14/16 10/14/16 10/13/16 busPIRone [Buspar] 15 mg PO BID 10/14/16 10/14/16 10/13/16 methOCARBAMOL [Robaxin TAB] 500 mg PO BID 10/14/16 10/14/16 10/13/16 Previous Rx's Medication Instructions Recorded Last Taken Type Promethazine [Phenergan TAB] 25 mg PO Q6HR PRN #30 tab 10/14/16 Unknown Rx Promethazine [Phenergan] 25 mg DC Q6HR PRN #20 supp.rect 10/14/16 Unknown Rx oxyCODONE /ACETAMINOPHEN [Percocet 1 tab PO Q6HR PRN #20 tablet 10/14/16 Unknown Rx 5/325] Allergies Allergy/AdvReac Type Severity Reaction Status Date / Time meperidine HCl [From Demerol] Allergy Anaphylaxis Verified 10/14/16 04:15 Penicillins Allergy Seizure Verified 10/14/16 04:15 acetaminophen [From Percocet] AdvReac Unknown Verified 10/14/16 04:15 ketorolac tromethamine AdvReac Seizure Verified 10/14/16 04:15 [From Toradol] metoclopramide HCl AdvReac Unknown Verified 10/14/16 04:15 [From Reglan] morphine AdvReac Hives Verified 10/14/16 04:15 oxycodone HCl [From Percocet] AdvReac Unknown Verified 10/14/16 04:15 prochlorperazine edisylate AdvReac Vomiting Verified 10/14/16 04:15 [From Compazine] prochlorperazine maleate AdvReac Vomiting Verified 10/14/16 04:15 [From Compazine] ED Review of Systems ROS: Stated complaint: ABD PAIN/N/V/D Other details as noted in HPI Comment: All other systems reviewed and negative Other: Constitutional: No fevers chills or weight loss Eyes: No eye pain visual changes or discharge ENT: No ear pain or throat pain Neck: Denies pain Respiratory: Denies cough wheezing shortness of breath Cardiovascular: Denies palpitations, syncope GI: As per HPI : Denies dysuria Musculoskeletal: Denies back pain Skin: Denies rash, lesions, erythema Neurologic: Denies headache, numbness, weakness Psychiatric: Denies suicidal ideation, hallucinations ED Past Medical Hx - Past Medical History Previous Medical History?: Yes Hx Hypertension: Yes Hx Congestive Heart Failure: Yes Hx Diabetes: Yes Hx GERD: Yes Additional medical history: pancreatitis (triglyceride induced), c-diff, afib, enlarged heart. spinal menengitis. TIA. gout, neuropathy, scoliosis, hyperthyroid. Sleep APNEA, home oxygen use - Surgical History Past Surgical History?: Yes Hx Cholecystectomy: Yes Hx Appendectomy: Yes Additional Surgical History: colon resection secondary to benign mass causing bowel obstruction, GB, partial stomach resection - Social History Smoking Status: Never Smoker Substance Use Type: None - Medications Home Medications: Home Medications Medication Instructions Recorded Confirmed Last Taken Type Apixaban [Eliquis] 5 mg PO BID 10/14/16 10/14/16 10/13/16 History Citalopram Hydrobromide [celeXA] 40 mg PO DAILY 10/14/16 10/14/16 10/13/16 History Fenofibrate [Lofibra] 160 mg PO QDAY 10/14/16 10/14/16 10/13/16 History Insulin Glargine [Lantus] 20 unit SUB-Q QHS 10/14/16 10/14/16 10/13/16 History Insulin Lispro [Humalog 100 10 units SQ TID 10/14/16 10/14/16 10/13/16 History UNITS/ML Kwikpen] L.acidoph,Paracasei, B.lactis 1 each PO BID 10/14/16 10/14/16 10/13/16 History [Probiotic] Levothyroxine [Synthroid] 25 mcg PO QAM 10/14/16 10/14/16 10/13/16 History Metoprolol Xl [Metoprolol 25 mg PO BID 10/14/16 10/14/16 10/13/16 History SUCCINATE ER TAB] Nortriptyline HCl [Pamelor] 25 mg PO DAILY 10/14/16 10/14/16 10/13/16 History Ondansetron [Zofran Odt] 4 mg PO PRN 10/14/16 10/14/16 10/13/16 History PHENobarbital 60 mg PO TID 10/14/16 10/14/16 10/13/16 History Pantoprazole [Protonix] 40 mg PO QDAY 10/14/16 10/14/16 10/13/16 History Pregabalin [Lyrica] 200 mg PO BID 10/14/16 10/14/16 10/13/16 History Promethazine [Phenergan TAB] 25 mg PO Q6HR PRN 10/14/16 10/14/16 10/13/16 History Promethazine [Phenergan TAB] 25 mg PO Q6HR PRN #30 tab 10/14/16 Unknown Rx Promethazine [Phenergan] 25 mg DC Q6HR PRN #20 supp.rect 10/14/16 Unknown Rx Quetiapine Fumarate [SEROquel] 50 mg PO QDAY 10/14/16 10/14/16 10/13/16 History Ranitidine HCl [Zantac 150 MG TAB] 300 mg PO DAILY 10/14/16 10/14/16 10/13/16 History Ropinirole HCl [Requip] 50 mg PO QHS 10/14/16 10/14/16 10/13/16 History Topiramate [Topamax] 50 mg PO DAILY 10/14/16 10/14/16 10/13/16 History busPIRone [Buspar] 15 mg PO BID 10/14/16 10/14/16 10/13/16 History methOCARBAMOL [Robaxin TAB] 500 mg PO BID 10/14/16 10/14/16 10/13/16 History oxyCODONE /ACETAMINOPHEN [Percocet 1 tab PO Q6HR PRN #20 tablet 10/14/16 Unknown Rx 5/325] ED Physical Exam - General Limitations: No Limitations - Other Other exam information: General: No limitations, patient is alert in no acute distress Head exam: Atraumatic, normocephalic Eyes exam: Normal appearance, pupils equal reactive to light, extraocular movements intact ENT: Moist mucous membrane, normal oropharynx Neck exam: Normal inspection, full range of motion, no meningismus nontender Respiratory exam: Clear to auscultation bilateral, no wheezes, rales, crackles Cardiovascular: Normal rate and rhythm, normal heart sounds Abdomen: Soft, nondistended, epigastric and left upper quadrant tenderness, with normal bowel sounds, no rebound, or guarding Rectal: Guaiac-negative brown stool Extremity: Full range of motion normal inspection no deformity Back: Normal Inspection, full range of motion, no tenderness Neurologic: Alert, oriented x3, cranial nerves intact, no motor or sensory deficit Psychiatric: normal affect, normal mood Skin: Warm, dry, intact ED Course Vital Signs 10/14/16 10/14/16 02:12 04:16 Temperature 99.4 F Pulse Rate 98 H 88 Respiratory 22 22 Rate Blood Pressure 153/104 Blood Pressure 125/66 [Left] O2 Sat by Pulse 97 94 Oximetry ED Medical Decision Making - Lab Data Result diagrams: 10/14/16 02:40 10/14/16 02:40 Lab Results 10/14/16 10/14/16 10/14/16 Range/Units 02:40 02:40 02:40 WBC 12.4 H (4.5-11.0) K/mm3 RBC 4.49 (3.65-5.03) M/mm3 Hgb 13.1 (11.8-15.2) gm/dl Hct 38.6 (35.5-45.6) % MCV 86 (84-94) fl MCH 29 (28-32) pg MCHC 34 (32-34) % RDW 18.6 H (13.2-15.2) % Plt Count 302 (140-440) K/mm3 Lymph % (Auto) 16.3 (13.4-35.0) % [place] % (Auto) 7.1 (0.0-7.3) % Eos % (Auto) 3.9 (0.0-4.3) % Baso % (Auto) 0.3 (0.0-1.8) % Lymph # 2.0 (1.2-5.4) K/mm3 [place] # 0.9 H (0.0-0.8) K/mm3 Eos # 0.5 H (0.0-0.4) K/mm3 Baso # 0.0 (0.0-0.1) K/mm3 Seg Neutrophils % 72.4 H (40.0-70.0) % Seg Neutrophils # 9.0 H (1.8-7.7) K/mm3 PT 13.8 (12.2-14.9) Sec. INR 1.01 (0.87-1.13) APTT 32.0 (24.2-36.6) Sec. Sodium 142 (137-145) mmol/L Potassium 3.7 (3.6-5.0) mmol/L Chloride 100.7 (98-107) mmol/L Carbon Dioxide 23 (22-30) mmol/L Anion Gap 22 mmol/L BUN 9 (9-20) mg/dL Creatinine 0.7 L (0.8-1.5) mg/dL Estimated GFR > 60 ml/min BUN/Creatinine Ratio 12.85 % Glucose 100 (75-100) mg/dL Calcium 9.5 (8.4-10.2) mg/dL Total Bilirubin < 0.20 (0.1-1.2) mg/dL AST 20 (5-40) units/L ALT 26 (7-56) units/L Alkaline Phosphatase 76 (35-129) units/L Total Protein 7.9 (6.3-8.2) g/dL Albumin 4.2 (3.9-5) g/dL Albumin/Globulin Ratio 1.1 % Lipase 70 H (13-60) units/L Blood Type Antibody Screen 10/14/16 Range/Units 02:40 WBC (4.5-11.0) K/mm3 RBC (3.65-5.03) M/mm3 Hgb (11.8-15.2) gm/dl Hct (35.5-45.6) % MCV (84-94) fl MCH (28-32) pg MCHC (32-34) % RDW (13.2-15.2) % Plt Count (140-440) K/mm3 Lymph % (Auto) (13.4-35.0) % [place] % (Auto) (0.0-7.3) % Eos % (Auto) (0.0-4.3) % Baso % (Auto) (0.0-1.8) % Lymph # (1.2-5.4) K/mm3 [place] # (0.0-0.8) K/mm3 Eos # (0.0-0.4) K/mm3 Baso # (0.0-0.1) K/mm3 Seg Neutrophils % (40.0-70.0) % Seg Neutrophils # (1.8-7.7) K/mm3 PT (12.2-14.9) Sec. INR (0.87-1.13) APTT (24.2-36.6) Sec. Sodium (137-145) mmol/L Potassium (3.6-5.0) mmol/L Chloride (98-107) mmol/L Carbon Dioxide (22-30) mmol/L Anion Gap mmol/L BUN (9-20) mg/dL Creatinine (0.8-1.5) mg/dL Estimated GFR ml/min BUN/Creatinine Ratio % Glucose (75-100) mg/dL Calcium (8.4-10.2) mg/dL Total Bilirubin (0.1-1.2) mg/dL AST (5-40) units/L ALT (7-56) units/L Alkaline Phosphatase (35-129) units/L Total Protein (6.3-8.2) g/dL Albumin (3.9-5) g/dL Albumin/Globulin Ratio % Lipase (13-60) units/L Blood Type O POSITIVE Antibody Screen Negative - EKG Data -: EKG Interpreted by Me (nsr rate 96, no stemi) - EKG Data When compared to previous EKG there are: no significant change - Radiology Data Radiology results: report reviewed (cxr: normal), image reviewed (abd series xray: no obstruction , Constipation) - Medical Decision Making Patient's pain improved in the ED. Tolerating by mouth. No longer vomiting. No signs of active bleeding, anemia, guaiac negative stools. I suspect Mo[place]- [place] tear as the cause of hematemesis since initial vomiting was nonbloody then turned bloody after multiple episodes of vomiting. Patient sees to have repeated episodes of abdominal pain and nausea vomiting. We discussed obtaining CAT scan and patient is in agreement that he does not want a CAT scan at this time due to multiple doses of radiation exposure and patient is experiencing similar pain to previous pancreatitis episodes. Patient states he does not have elevation in his lipase anymore. Patient taken Tylenol for pain he does not have any anti-emetics. We prescribed Phenergan per his request and pain medication. He is a already taking his PPI, H2 edvin and supposedly phenobarb for his abdomen as well - Differential Diagnosis obstruction, pancreatitis, gastritis Critical Care Time: No Critical care attestation.: If time is entered above; I have spent that time in minutes in the direct care of this critically ill patient, excluding procedure time. ED Disposition Clinical Impression: Abdominal pain, Nausea without vomiting, Hematemesis, Anticoagulated by anticoagulation treatment, Pulmonary embolism Disposition: DC-01 TO HOME OR SELFCARE Is pt being admited?: No Does the pt Need Aspirin: No Condition: Stable Instructions: Abdominal Pain (ED), Acute Nausea and Vomiting (ED) Additional Instructions: Take the medications as prescribed. Return if symptoms worsen. Prescriptions: oxyCODONE /ACETAMINOPHEN [Percocet 5/325] 1 tab PO Q6HR PRN #20 tablet PRN Reason: Pain Promethazine [Phenergan TAB] 25 mg PO Q6HR PRN #30 tab PRN Reason: Nausea Promethazine [Phenergan] 25 mg DC Q6HR PRN #20 supp.rect PRN Reason: Nausea And Vomiting Referrals: MADELIN YOUNG [Other] - 3-5 Days JENNIFER GRANT MD [Staff Physician] - 3-5 Days (GI) Forms: Accompanied Note Time of Disposition: 05:39
[2016-10-14 06:11] VITALS: BP 133/75
--- NOTE | 2016-10-14 09:43 | XRay Report ---
ABDOMEN RADIOGRAPHS INDICATION: Abdominal pain, vomiting. COMPARISON: 10/03/2016 FINDINGS: Frontal abdominal supine and upright radiographs again demonstrate nonobstructive bowel gas pattern with mild contrast mixed with stool now seen along the ascending colon. Stable cholecystectomy clips. No definite focal suspicious calcifications, pneumatosis or pneumoperitoneum. Clear visualized lung bases. Intact bones. EKG leads. CONCLUSION: No acute abdominal radiographic abnormality, as described. Thank you for the opportunity to participate in this patient's care.
== END 2016-10-14 06:22 | disposition home or self-care (01) ==
LOC: ED 02:02
DX: K92.0 Hematemesis (principal); R11.0 Nausea; I26.99 Other pulmonary embolism without acute cor pulmonale; R10.13 Epigastric pain; R10.12 Left upper quadrant pain; I10 Essential (primary) hypertension; I50.9 Heart failure, unspecified; E11.9 Type 2 diabetes mellitus without complications; K21.9 Gastro-esophageal reflux disease without esophagitis; Z79.4 Long term (current) use of insulin; Z88.0 Allergy status to penicillin; Z88.5 Allergy status to narcotic agent; Z88.8 Allergy status to other drugs, medicaments and biological substances
CPT/HCPCS: 36415; 71020; 74020; 80053; 82271; 83690; 85025; 85610; 85730; 86850; 86900; 86901; 93005; 93010; 96374; 96375; 96376; 99285; C9113; J1170; J2405; J7040; Q0169

== ENCOUNTER 2016-11-10 01:50 | Emergency (ER) | payer BC, MEDICAID ==
[2016-11-10 02:04] VITALS: BP 148/95
[2016-11-10] MEDS ORDERED: NACL 0.9% 1000 ML 1,000 ML IV ONE (02:04)
[2016-11-10 02:30] LABS: Basophils % (Auto) 0.9 % (0.0-1.8); Hematocrit 39.8 % (35.5-45.6); Hemoglobin 13.5 gm/dl (11.8-15.2); Mean Corpuscular HGB Conc 34 % (32-34); Mean Corpuscular Hemoglobin 30 pg (28-32); Mean Corpuscular Volume 88 fl (84-94); Platelet Count 333 K/mm3 (140-440); Red Blood Count 4.53 M/mm3 (3.65-5.03); Red Cell Distribution Width 16.4 % (13.2-15.2)
[2016-11-10 02:45] LABS: INR 0.86 (0.87-1.13)
[2016-11-10 02:46] LABS: Partial Thromboplastin Time 29.7 Sec. (24.2-36.6)
[2016-11-10 02:52] LABS: Alanine Aminotransferase 40 units/L (7-56); Alkaline Phosphatase 95 units/L (35-129); Anion Gap 19 mmol/L; BUN/Creatinine Ratio 11.25; Bilirubin,Total < 0.20 mg/dL (0.1-1.2); Blood Urea Nitrogen 9 mg/dL (9-20); Calcium 9.5 mg/dL (8.4-10.2); Carbon Dioxide 22 mmol/L (22-30); Chloride 101.4 mmol/L (98-107); Glucose 197 mg/dL (75-100); Lipase 101 units/L (13-60); Potassium 4.1 mmol/L (3.6-5.0); Sodium 138 mmol/L (137-145); Total Protein 8.2 g/dL (6.3-8.2)
== END 2016-11-10 04:26 | disposition left against medical advice (07) ==
LOC: ED 01:50
DX: K62.5 Hemorrhage of anus and rectum (principal); Z53.21 Procedure and treatment not carried out due to patient leaving prior to being seen by health care provider
CPT/HCPCS: 36415; 80053; 83690; 85025; 85610; 85730; 86850; 86900; 86901; 93005; 93010

== ENCOUNTER 2016-11-28 00:31 | Emergency (ER) | payer BC ==
[2016-11-28 00:45] VITALS: BP 141/88
== END 2016-11-28 00:35 | disposition left against medical advice (07) ==
LOC: ED 00:31
DX: R10.9 Unspecified abdominal pain (principal); R11.2 Nausea with vomiting, unspecified; Z53.21 Procedure and treatment not carried out due to patient leaving prior to being seen by health care provider

== ENCOUNTER 2016-12-02 06:17 | Emergency (ER) | payer BC, MEDICARE ==
[2016-12-02] MEDS ORDERED: NORCO 10/325 ONE (06:50)
[2016-12-02] MEDS ORDERED: NORCO 10/325 PO ONE (06:51)
[2016-12-02] MEDS ORDERED: ZOFRAN ODT PO ONE (06:51)
[2016-12-02] MEDS ORDERED: ZOFRAN ODT ONE (06:51)
[2016-12-02] MEDS ORDERED: NACL 0.9% 1000 ML 1,000 ML IV ONE (08:51)
[2016-12-02] MEDS ORDERED: MORPHINE IV ONE (08:51)
--- NOTE | 2016-12-02 08:51 | Emergency Department Report ---
ED Abdominal Pain HPI - General Chief Complaint: Abdominal Pain Stated Complaint: ABD PAIN, N/V/D Time Seen by Provider: 12/02/16 08:31 Source: patient Mode of arrival: Ambulatory Limitations: No Limitations - History of Present Illness Initial Comments: 36-year-old male with a history of pancreatitis here with complaint of abdominal pain nausea vomiting for the last 2 days. Patient has had worsening pain over the course last couple days. No fevers or chills. No blood in stool. Had multiple surgeries in the past. He is followed by a satellite instruction facilitator at [place]. MD Complaint: abdominal pain -: Gradual Location: diffuse, epigastric Radiation: none Migration to: no migration Severity: severe Severity scale (0 -10): 6 Quality: stabbing, aching Consistency: constant Worsens With: nothing, movement Associated Symptoms: nausea, vomiting. denies: diarrhea, fever, chills, constipation, dysuria - Related Data Home Medications Medication Instructions Recorded Confirmed Last Taken Apixaban [Eliquis] 5 mg PO BID 10/14/16 12/02/16 10/13/16 Citalopram Hydrobromide [celeXA] 40 mg PO DAILY 10/14/16 12/02/16 10/13/16 Fenofibrate [Lofibra] 160 mg PO QDAY 10/14/16 12/02/16 10/13/16 Insulin Glargine [Lantus] 20 unit SUB-Q QHS 10/14/16 12/02/16 10/13/16 Insulin Lispro [Humalog 100 10 units SQ TID 10/14/16 12/02/16 10/13/16 UNITS/ML Kwikpen] L.acidoph,Paracasei, B.lactis 1 each PO BID 10/14/16 12/02/16 10/13/16 [Probiotic] Levothyroxine [Synthroid] 25 mcg PO QAM 10/14/16 12/02/16 10/13/16 Metoprolol Xl [Metoprolol 25 mg PO BID 10/14/16 12/02/16 10/13/16 SUCCINATE ER TAB] Nortriptyline HCl [Pamelor] 25 mg PO DAILY 10/14/16 12/02/16 10/13/16 Ondansetron [Zofran Odt] 4 mg PO PRN 10/14/16 12/02/16 10/13/16 Pantoprazole [Protonix] 40 mg PO QDAY 10/14/16 12/02/16 10/13/16 Pregabalin [Lyrica] 200 mg PO BID 10/14/16 12/02/16 10/13/16 Quetiapine Fumarate [SEROquel] 50 mg PO QDAY 10/14/16 12/02/16 10/13/16 Ranitidine HCl [Zantac 150 MG TAB] 300 mg PO DAILY 10/14/16 12/02/16 10/13/16 Ropinirole HCl [Requip] 50 mg PO QHS 10/14/16 12/02/16 10/13/16 Topiramate [Topamax] 50 mg PO DAILY 10/14/16 12/02/16 10/13/16 busPIRone [Buspar] 15 mg PO BID 10/14/16 12/02/16 10/13/16 methOCARBAMOL [Robaxin TAB] 500 mg PO BID 10/14/16 12/02/16 10/13/16 ALPRAZolam [Xanax TAB] 0.5 mg PO BID PRN 12/02/16 12/02/16 Unknown Quetiapine Fumarate [Seroquel] 300 mg PO ONCE 12/02/16 12/02/16 Unknown Previous Rx's Medication Instructions Recorded Last Taken Type HYDROcodone/APAP 5-325 [[place] 1 each PO Q6HR PRN #10 tablet 12/02/16 Unknown Rx 5-325 mg TAB] Allergies Allergy/AdvReac Type Severity Reaction Status Date / Time meperidine HCl [From Demerol] Allergy Anaphylaxis Verified 10/14/16 04:15 Penicillins Allergy Seizure Verified 10/14/16 04:15 acetaminophen [From Percocet] AdvReac Unknown Verified 10/14/16 04:15 ketorolac tromethamine AdvReac Seizure Verified 10/14/16 04:15 [From Toradol] metoclopramide HCl AdvReac Unknown Verified 10/14/16 04:15 [From Reglan] morphine AdvReac Hives Verified 10/14/16 04:15 oxycodone HCl [From Percocet] AdvReac Unknown Verified 10/14/16 04:15 prochlorperazine edisylate AdvReac Vomiting Verified 10/14/16 04:15 [From Compazine] prochlorperazine maleate AdvReac Vomiting Verified 10/14/16 04:15 [From Compazine] ED Review of Systems ROS: Stated complaint: ABD PAIN, N/V/D Other details as noted in HPI Comment: All other systems reviewed and negative Constitutional: denies: chills, fever Eyes: denies: vision change ENT: denies: ear pain, throat pain Respiratory: denies: cough, shortness of breath, wheezing Cardiovascular: denies: chest pain, palpitations Endocrine: no symptoms reported Gastrointestinal: abdominal pain, nausea. denies: diarrhea Genitourinary: denies: urgency, dysuria Musculoskeletal: denies: back pain, joint swelling, arthralgia Skin: denies: rash, lesions Neurological: denies: headache, weakness, paresthesias Psychiatric: denies: anxiety, depression Hematological/Lymphatic: denies: easy bleeding, easy bruising ED Past Medical Hx - Past Medical History Previous Medical History?: Yes Hx Hypertension: Yes Hx Congestive Heart Failure: Yes Hx Diabetes: Yes Hx GERD: Yes Additional medical history: Obesity. pancreatitis (triglyceride induced), c- diff, afib, enlarged heart. spinal menengitis. TIA. gout, neuropathy, scoliosis, hyperthyroid. Sleep APNEA, home oxygen use - Surgical History Past Surgical History?: Yes Hx Cholecystectomy: Yes Hx Appendectomy: Yes Additional Surgical History: colon resection secondary to benign mass causing bowel obstruction, GB, partial stomach resection - Family History Family history: no significant - Social History Smoking Status: Never Smoker Substance Use Type: None - Medications Home Medications: Home Medications Medication Instructions Recorded Confirmed Last Taken Type Apixaban [Eliquis] 5 mg PO BID 10/14/16 12/02/16 10/13/16 History Citalopram Hydrobromide [celeXA] 40 mg PO DAILY 10/14/16 12/02/16 10/13/16 History Fenofibrate [Lofibra] 160 mg PO QDAY 10/14/16 12/02/16 10/13/16 History Insulin Glargine [Lantus] 20 unit SUB-Q QHS 10/14/16 12/02/16 10/13/16 History Insulin Lispro [Humalog 100 10 units SQ TID 10/14/16 12/02/16 10/13/16 History UNITS/ML Kwikpen] L.acidoph,Paracasei, B.lactis 1 each PO BID 10/14/16 12/02/16 10/13/16 History [Probiotic] Levothyroxine [Synthroid] 25 mcg PO QAM 10/14/16 12/02/16 10/13/16 History Metoprolol Xl [Metoprolol 25 mg PO BID 10/14/16 12/02/16 10/13/16 History SUCCINATE ER TAB] Nortriptyline HCl [Pamelor] 25 mg PO DAILY 10/14/16 12/02/16 10/13/16 History Ondansetron [Zofran Odt] 4 mg PO PRN 10/14/16 12/02/16 10/13/16 History Pantoprazole [Protonix] 40 mg PO QDAY 10/14/16 12/02/16 10/13/16 History Pregabalin [Lyrica] 200 mg PO BID 10/14/16 12/02/16 10/13/16 History Quetiapine Fumarate [SEROquel] 50 mg PO QDAY 10/14/16 12/02/16 10/13/16 History Ranitidine HCl [Zantac 150 MG TAB] 300 mg PO DAILY 10/14/16 12/02/16 10/13/16 History Ropinirole HCl [Requip] 50 mg PO QHS 10/14/16 12/02/16 10/13/16 History Topiramate [Topamax] 50 mg PO DAILY 10/14/16 12/02/16 10/13/16 History busPIRone [Buspar] 15 mg PO BID 10/14/16 12/02/16 10/13/16 History methOCARBAMOL [Robaxin TAB] 500 mg PO BID 10/14/16 12/02/16 10/13/16 History ALPRAZolam [Xanax TAB] 0.5 mg PO BID PRN 12/02/16 12/02/16 Unknown History HYDROcodone/APAP 5-325 [[place] 1 each PO Q6HR PRN #10 tablet 12/02/16 Unknown Rx 5-325 mg TAB] Quetiapine Fumarate [Seroquel] 300 mg PO ONCE 12/02/16 12/02/16 Unknown History ED Physical Exam - General Limitations: No Limitations General appearance: alert, in no apparent distress - Head Head exam: Present: atraumatic, normocephalic - Eye Eye exam: Present: normal appearance - ENT ENT exam: Present: mucous membranes moist - Neck Neck exam: Present: normal inspection - Respiratory Respiratory exam: Present: normal lung sounds bilaterally. Absent: respiratory distress, wheezes, rales - Cardiovascular Cardiovascular Exam: Present: regular rate, normal rhythm. Absent: systolic murmur, diastolic murmur, rubs, gallop - GI/Abdominal GI/Abdominal exam: Present: soft, distended, tenderness (mild voluntary epigastric), guarding, normal bowel sounds - Rectal Rectal exam: Present: deferred - Extremities Exam Extremities exam: Present: normal inspection - Back Exam Back exam: Present: normal inspection - Neurological Exam Neurological exam: Present: alert, oriented X3 - Psychiatric Psychiatric exam: Present: normal affect, normal mood - Skin Skin exam: Present: warm, dry, intact, normal color. Absent: rash ED Course Vital Signs 12/02/16 12/02/16 12/02/16 06:51 08:51 10:04 Temperature 98.5 F 98.4 F Pulse Rate 98 H 92 H 82 Respiratory 20 19 Rate Blood Pressure 144/96 150/74 121/67 [Right] O2 Sat by Pulse 97 95 Oximetry ED Medical Decision Making - Lab Data Result diagrams: 12/02/16 09:39 12/02/16 09:39 Laboratory Results - last 24 hr 12/02/16 12/02/16 12/02/16 09:39 09:39 Unknown WBC 8.5 RBC 4.11 Hgb 12.6 Hct 36.1 MCV 88 MCH 31 MCHC 35 H RDW 15.4 H Plt Count 300 Lymph % (Auto) 16.7 [place] % (Auto) 9.4 H Eos % (Auto) 2.9 Baso % (Auto) 0.5 Lymph # 1.4 [place] # 0.8 Eos # 0.2 Baso # 0.0 Seg Neutrophils % 70.5 H Seg Neutrophils # 6.0 Sodium 141 Potassium 3.8 Chloride 103.5 Carbon Dioxide 25 Anion Gap 16 BUN 8 L Creatinine 0.7 L Estimated GFR > 60 BUN/Creatinine Ratio 11 Glucose 103 H Calcium 9.0 Total Bilirubin 0.20 AST 25 ALT 38 Alkaline Phosphatase 69 Total Protein 7.3 Albumin 4.2 Albumin/Globulin Ratio 1.4 Lipase 48 Urine Color Yellow Urine Turbidity Clear Urine pH 5.0 Ur Specific [place] 1.020 Urine Protein <15 mg/dl Urine Glucose (UA) Neg Urine Ketones Neg Urine Blood Neg Urine Nitrite Neg Urine Bilirubin Neg Urine Urobilinogen < 2.0 Ur Leukocyte Esterase Neg Urine WBC (Auto) 1.0 Urine RBC (Auto) < 1.0 Urine Mucus Few - Medical Decision Making Patient is an 36-year-old male with known history of pancreatic cancer with abdominal pain. Patient states this feels like his pancreatitis. Plan to treat him with IV narcotics and IV antiemetics and IV fluids and will reassess. This point I do not feel he needs a CAT scan. His pain is improved after several rounds of pain medications. I do not feel he needs a CT scan after reviewing his labs. He has no evidence of elevation of white blood cell count the rest of his chemistries are unremarkable. I have not witnessed him vomiting in the emergency department. At this point I plan to discharge him home. Counseled to return for worsening pain fevers chills nausea vomiting. Portions of this chart were dictated with dictation software. There may be dictation errors contained within this note. Critical care attestation.: If time is entered above; I have spent that time in minutes in the direct care of this critically ill patient, excluding procedure time. ED Disposition Clinical Impression: Abdominal pain Disposition: DC-01 TO HOME OR SELFCARE Is pt being admited?: No Condition: Stable Instructions: Acute Abdominal Pain (ED) Additional Instructions: Follow-up with your regular doctor. Prescriptions: HYDROcodone/APAP 5-325 [[place] 5-325 mg TAB] 1 each PO Q6HR PRN #10 tablet PRN Reason: Pain Referrals: PRIMARY CARE,MD [Primary Care Provider] - 3-5 Days
[2016-12-02 08:52] LABS: Bilirubin,Urine NEG (Negative); Blood,Urine NEG (Negative); Ketones,Urine NEG (Negative); Leukocyte Esterase,Urine NEG (Negative); Mucus,Urine FEW /HPF; Nitrite,Urine NEG (Negative); Protein,Urine <15 mg/dL mg/dL (Negative); RBC,Urine < 1.0 /HPF (0.0-6.0); Urobilinogen,Urine < 2.0 mg/dL (<2.0)
[2016-12-02] MEDS ORDERED: DILAUDID IV ONE ×2 (09:19→11:09)
[2016-12-02 09:58] LABS: Basophils % (Auto) 0.5 % (0.0-1.8); Eosinophils % (Auto) 2.9 % (0.0-4.3); Hematocrit 36.1 % (35.5-45.6); Hemoglobin 12.6 gm/dl (11.8-15.2); Mean Corpuscular HGB Conc 35 % (32-34); Mean Corpuscular Hemoglobin 31 pg (28-32); Mean Corpuscular Volume 88 fl (84-94); Platelet Count 300 K/mm3 (140-440); Red Blood Count 4.11 M/mm3 (3.65-5.03); Red Cell Distribution Width 15.4 % (13.2-15.2); White Blood Count 8.5 K/mm3 (4.5-11.0)
[2016-12-02 10:13] LABS: Alanine Aminotransferase 38 units/L (7-56); Albumin 4.2 g/dL (3.9-5); Albumin/Globulin Ratio 1.4 %; Alkaline Phosphatase 69 units/L (35-129); Anion Gap 16 mmol/L; BUN/Creatinine Ratio 11; Blood Urea Nitrogen 8 mg/dL (9-20); Carbon Dioxide 25 mmol/L (22-30); Chloride 103.5 mmol/L (98-107); Glucose 103 mg/dL (75-100); Lipase 48 units/L (13-60); Potassium 3.8 mmol/L (3.6-5.0); Sodium 141 mmol/L (137-145); Total Protein 7.3 g/dL (6.3-8.2)
[2016-12-02 12:04] VITALS: BP 124/67
== END 2016-12-02 12:05 | disposition home or self-care (01) ==
LOC: ED 06:17
DX: R10.9 Unspecified abdominal pain (principal); I10 Essential (primary) hypertension; I50.9 Heart failure, unspecified; E11.9 Type 2 diabetes mellitus without complications; K21.9 Gastro-esophageal reflux disease without esophagitis
CPT/HCPCS: 36415; 80053; 81001; 83690; 85025; 93005; 93010; 96361; 96374; 96376; 99284; J1170; J7030; J2270; Q0162

== ENCOUNTER 2017-01-09 00:39 | Emergency (ER) | payer BC ==
[2017-01-09 01:29] LABS: Basophils % (Auto) 0.3 % (0.0-1.8); Eosinophils % (Auto) 2.4 % (0.0-4.3); Hematocrit 36.3 % (35.5-45.6); Hemoglobin 12.2 gm/dl (11.8-15.2); Mean Corpuscular HGB Conc 34 % (32-34); Mean Corpuscular Hemoglobin 29 pg (28-32); Mean Corpuscular Volume 86 fl (84-94); Platelet Count 340 K/mm3 (140-440); Red Blood Count 4.21 M/mm3 (3.65-5.03); Red Cell Distribution Width 15.7 % (13.2-15.2); White Blood Count 9.9 K/mm3 (4.5-11.0)
[2017-01-09 01:43] LABS: Alanine Aminotransferase 31 units/L (7-56); Albumin 4.2 g/dL (3.9-5); Albumin/Globulin Ratio 1.4 %; Alkaline Phosphatase 99 units/L (35-129); Anion Gap 19 mmol/L; BUN/Creatinine Ratio 11; Blood Urea Nitrogen 8 mg/dL (9-20); Calcium 9.2 mg/dL (8.4-10.2); Carbon Dioxide 24 mmol/L (22-30); Chloride 99.8 mmol/L (98-107); Glucose 185 mg/dL (75-100); Lipase 72 units/L (13-60); Potassium 4.2 mmol/L (3.6-5.0); Sodium 139 mmol/L (137-145); Total Protein 7.1 g/dL (6.3-8.2)
[2017-01-09] MEDS ORDERED: DILAUDID IV ONE ×3 (02:59→05:19)
[2017-01-09] MEDS ORDERED: ZOFRAN IV ONE ×2 (02:59→05:19)
[2017-01-09] MEDS ORDERED: NACL 0.9% 1000 ML 1,000 ML IV ONE (02:59)
--- NOTE | 2017-01-09 03:00 | Emergency Department Report ---
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 Patient complains of pain to the epigastric area radiating to the back that is severe and continuous. Worse with palpation. Patient had associated nausea, vomiting, and diarrhea for the past 2 days. Unable to tolerate much by mouth intake. Patient taking Phenergan and Zofran without improvement. Does not have any pain medications currently. Patient reports a MAXIMUM TEMPERATURE of 101.9 at home that broke with Tylenol. He denies cough or cold symptoms or dysuria. Severity scale (0 -10): 9 - Related Data Home Medications Medication Instructions Recorded Confirmed Last Taken Apixaban [Eliquis] 5 mg PO BID 10/14/16 12/02/16 10/13/16 Citalopram Hydrobromide [celeXA] 40 mg PO DAILY 10/14/16 12/02/16 10/13/16 Fenofibrate [Lofibra] 160 mg PO QDAY 10/14/16 12/02/16 10/13/16 Insulin Glargine [Lantus] 20 unit SUB-Q QHS 10/14/16 12/02/16 10/13/16 Insulin Lispro [Humalog 100 10 units SQ TID 10/14/16 12/02/16 10/13/16 UNITS/ML Kwikpen] L.acidoph,Paracasei, B.lactis 1 each PO BID 10/14/16 12/02/16 10/13/16 [Probiotic] Levothyroxine [Synthroid] 25 mcg PO QAM 10/14/16 12/02/16 10/13/16 Metoprolol Xl [Metoprolol 25 mg PO BID 10/14/16 12/02/16 10/13/16 SUCCINATE ER TAB] Nortriptyline HCl [Pamelor] 25 mg PO DAILY 10/14/16 12/02/16 10/13/16 Ondansetron [Zofran Odt] 4 mg PO PRN 10/14/16 12/02/16 10/13/16 Pantoprazole [Protonix] 40 mg PO QDAY 10/14/16 12/02/16 10/13/16 Pregabalin [Lyrica] 200 mg PO BID 10/14/16 12/02/16 10/13/16 Quetiapine Fumarate [SEROquel] 50 mg PO QDAY 10/14/16 12/02/16 10/13/16 Ranitidine HCl [Zantac 150 MG TAB] 300 mg PO DAILY 10/14/16 12/02/16 10/13/16 Ropinirole HCl [Requip] 50 mg PO QHS 10/14/16 12/02/16 10/13/16 Topiramate [Topamax] 50 mg PO DAILY 10/14/16 12/02/16 10/13/16 busPIRone [Buspar] 15 mg PO BID 10/14/16 12/02/16 10/13/16 methOCARBAMOL [Robaxin TAB] 500 mg PO BID 10/14/16 12/02/16 10/13/16 ALPRAZolam [Xanax TAB] 0.5 mg PO BID PRN 12/02/16 12/02/16 Unknown Quetiapine Fumarate [Seroquel] 300 mg PO ONCE 12/02/16 12/02/16 Unknown Previous Rx's Medication Instructions Recorded Last Taken Type HYDROcodone/APAP 5-325 [[place] 1 each PO Q6HR PRN #10 tablet 12/02/16 Unknown Rx 5-325 mg TAB] Promethazine [Phenergan TAB] 25 mg PO Q6HR PRN #30 tab 01/09/17 Unknown Rx oxyCODONE /ACETAMINOPHEN [Percocet 1 tab PO Q4HR #20 tab 01/09/17 Unknown Rx 5/325] Allergies Allergy/AdvReac Type Severity Reaction Status Date / Time meperidine HCl [From Demerol] Allergy Anaphylaxis Verified 10/14/16 04:15 Penicillins Allergy Seizure Verified 10/14/16 04:15 acetaminophen [From Percocet] AdvReac Unknown Verified 10/14/16 04:15 ketorolac tromethamine AdvReac Seizure Verified 10/14/16 04:15 [From Toradol] metoclopramide HCl AdvReac Unknown Verified 10/14/16 04:15 [From Reglan] morphine AdvReac Hives Verified 10/14/16 04:15 oxycodone HCl [From Percocet] AdvReac Unknown Verified 10/14/16 04:15 prochlorperazine edisylate AdvReac Vomiting Verified 10/14/16 04:15 [From Compazine] prochlorperazine maleate AdvReac Vomiting Verified 10/14/16 04:15 [From Compazine] ED Review of Systems ROS: Stated complaint: ABD PAIN Other details as noted in HPI Comment: All other systems reviewed and negative Other: Constitutional: As per HPI Eyes: No eye pain visual changes or discharge ENT: No ear pain or throat pain Neck: Denies pain Respiratory: Denies cough wheezing shortness of breath Cardiovascular: Denies chest pain, palpitations, syncope GI: As per HPI : Denies dysuria Musculoskeletal: Denies back pain, joint swelling Skin: Denies rash, lesions, erythema Neurologic: Denies headache, numbness, weakness Psychiatric: Denies suicidal ideation, hallucinations ED Past Medical Hx - Past Medical History Hx Hypertension: Yes Hx Congestive Heart Failure: Yes Hx Diabetes: Yes Hx Pulmonary Embolism: Yes (diagnosed oct 2016) Hx GERD: Yes Additional medical history: Obesity. pancreatitis (triglyceride induced), c- diff, afib, enlarged heart. spinal menengitis. TIA. gout, neuropathy, scoliosis, hyperthyroid. Sleep APNEA, home oxygen use - Surgical History Hx Cholecystectomy: Yes Hx Appendectomy: Yes Additional Surgical History: colon resection secondary to benign mass causing bowel obstruction, GB, partial stomach resection - Social History Smoking Status: Never Smoker Substance Use Type: None - Medications Home Medications: Home Medications Medication Instructions Recorded Confirmed Last Taken Type Apixaban [Eliquis] 5 mg PO BID 10/14/16 12/02/16 10/13/16 History Citalopram Hydrobromide [celeXA] 40 mg PO DAILY 10/14/16 12/02/16 10/13/16 History Fenofibrate [Lofibra] 160 mg PO QDAY 10/14/16 12/02/16 10/13/16 History Insulin Glargine [Lantus] 20 unit SUB-Q QHS 10/14/16 12/02/16 10/13/16 History Insulin Lispro [Humalog 100 10 units SQ TID 10/14/16 12/02/16 10/13/16 History UNITS/ML Kwikpen] L.acidoph,Paracasei, B.lactis 1 each PO BID 10/14/16 12/02/16 10/13/16 History [Probiotic] Levothyroxine [Synthroid] 25 mcg PO QAM 10/14/16 12/02/16 10/13/16 History Metoprolol Xl [Metoprolol 25 mg PO BID 10/14/16 12/02/16 10/13/16 History SUCCINATE ER TAB] Nortriptyline HCl [Pamelor] 25 mg PO DAILY 10/14/16 12/02/16 10/13/16 History Ondansetron [Zofran Odt] 4 mg PO PRN 10/14/16 12/02/16 10/13/16 History Pantoprazole [Protonix] 40 mg PO QDAY 10/14/16 12/02/16 10/13/16 History Pregabalin [Lyrica] 200 mg PO BID 10/14/16 12/02/16 10/13/16 History Quetiapine Fumarate [SEROquel] 50 mg PO QDAY 10/14/16 12/02/16 10/13/16 History Ranitidine HCl [Zantac 150 MG TAB] 300 mg PO DAILY 10/14/16 12/02/16 10/13/16 History Ropinirole HCl [Requip] 50 mg PO QHS 10/14/16 12/02/16 10/13/16 History Topiramate [Topamax] 50 mg PO DAILY 10/14/16 12/02/16 10/13/16 History busPIRone [Buspar] 15 mg PO BID 10/14/16 12/02/16 10/13/16 History methOCARBAMOL [Robaxin TAB] 500 mg PO BID 10/14/16 12/02/16 10/13/16 History ALPRAZolam [Xanax TAB] 0.5 mg PO BID PRN 12/02/16 12/02/16 Unknown History HYDROcodone/APAP 5-325 [[place] 1 each PO Q6HR PRN #10 tablet 12/02/16 Unknown Rx 5-325 mg TAB] Quetiapine Fumarate [Seroquel] 300 mg PO ONCE 12/02/16 12/02/16 Unknown History Promethazine [Phenergan TAB] 25 mg PO Q6HR PRN #30 tab 01/09/17 Unknown Rx oxyCODONE /ACETAMINOPHEN [Percocet 1 tab PO Q4HR #20 tab 01/09/17 Unknown Rx 5/325] ED Physical Exam - General Limitations: No Limitations - Other Other exam information: General: No limitations, patient is alert in no acute distress Head exam: Atraumatic, normocephalic Eyes exam: Normal appearance, nonicteric sclera ENT: Moist mucous membrane, normal oropharynx Neck exam: Normal inspection, full range of motion, no meningismus nontender Respiratory exam: Clear to auscultation bilateral, no wheezes, rales, crackles Cardiovascular: Mild tachycardia regular rhythm Abdomen: Soft, nondistended, surgical scars noted. Epigastric tenderness, no rebound or guarding Extremity: Full range of motion normal inspection no deformity Back: Normal Inspection, full range of motion, no tenderness Neurologic: Alert, oriented x3, cranial nerves intact, no motor or sensory deficit Psychiatric: normal affect, normal mood Skin: Warm, dry, intact ED Course Vital Signs 01/09/17 01/09/17 01/09/17 00:44 02:30 02:45 Temperature 98.8 F 99.5 F Pulse Rate 108 H 102 H 101 H Respiratory 20 23 23 Rate Blood Pressure 113/73 Blood Pressure 158/88 113/73 [Right] O2 Sat by Pulse 94 92 95 Oximetry 01/09/17 01/09/17 01/09/17 03:01 03:21 03:51 Temperature Pulse Rate 106 H Respiratory 22 23 16 Rate Blood Pressure 115/82 Blood Pressure [Right] O2 Sat by Pulse 94 Oximetry 01/09/17 01/09/17 01/09/17 04:17 04:19 04:31 Temperature Pulse Rate 105 H 105 H Respiratory 16 16 22 Rate Blood Pressure 115/82 120/74 Blood Pressure [Right] O2 Sat by Pulse 92 92 Oximetry 01/09/17 01/09/17 01/09/17 04:49 05:00 05:25 Temperature 98.7 F Pulse Rate 102 H 94 H Respiratory 16 25 H 20 Rate Blood Pressure 118/70 Blood Pressure 121/60 [Right] O2 Sat by Pulse 92 94 Oximetry 01/09/17 05:31 Temperature Pulse Rate Respiratory 16 Rate Blood Pressure Blood Pressure [Right] O2 Sat by Pulse Oximetry - Reevaluation(s) Reevaluation #1: 01/09/17 05:52 Pain improved with Dilaudid, normal saline, and Zofran - EJ/Peripheral Line Neck R Time Out Performed: Yes Indications: nurses unable to establis Skin Cleansed in Sterile Fashion: Yes Size: 20 Dressing Placed: Tegaderm, tape Patient Tolerated Procedure: well, no complications ED Medical Decision Making - Lab Data Result diagrams: 01/09/17 01:07 01/09/17 01:07 Lab Results 01/09/17 01/09/17 01/09/17 Range/Units 01:07 01:07 04:12 WBC 9.9 (4.5-11.0) K/mm3 RBC 4.21 (3.65-5.03) M/mm3 Hgb 12.2 (11.8-15.2) gm/dl Hct 36.3 (35.5-45.6) % MCV 86 (84-94) fl MCH 29 (28-32) pg MCHC 34 (32-34) % RDW 15.7 H (13.2-15.2) % Plt Count 340 (140-440) K/mm3 Lymph % (Auto) 16.6 (13.4-35.0) % [place] % (Auto) 9.4 H (0.0-7.3) % Eos % (Auto) 2.4 (0.0-4.3) % Baso % (Auto) 0.3 (0.0-1.8) % Lymph # 1.6 (1.2-5.4) K/mm3 [place] # 0.9 H (0.0-0.8) K/mm3 Eos # 0.2 (0.0-0.4) K/mm3 Baso # 0.0 (0.0-0.1) K/mm3 Seg Neutrophils % 71.3 H (40.0-70.0) % Seg Neutrophils # 7.0 (1.8-7.7) K/mm3 Sodium 139 (137-145) mmol/L Potassium 4.2 (3.6-5.0) mmol/L Chloride 99.8 (98-107) mmol/L Carbon Dioxide 24 (22-30) mmol/L Anion Gap 19 mmol/L BUN 8 L (9-20) mg/dL Creatinine 0.7 L (0.8-1.5) mg/dL Estimated GFR > 60 ml/min BUN/Creatinine Ratio 11 % Glucose 185 H (75-100) mg/dL Calcium 9.2 (8.4-10.2) mg/dL Total Bilirubin 0.20 (0.1-1.2) mg/dL AST 22 (5-40) units/L ALT 31 (7-56) units/L Alkaline Phosphatase 99 (35-129) units/L Total Protein 7.1 (6.3-8.2) g/dL Albumin 4.2 (3.9-5) g/dL Albumin/Globulin Ratio 1.4 % Lipase 72 H (13-60) units/L Urine Bilirubin Neg (Negative) Urine RBC (Auto) 16.0 (0.0-6.0) /HPF - Radiology Data Radiology results: report reviewed CT abdomen and pelvis with IV contrast: No acute process. Small design ventral hernia containing omental fat. 3.9 cm cortical cyst in the right kidney. Previous cholecystectomy and appendectomy noted. 9.2 cm noncalcified juxtapleural nodule in the right lung base. Follow-up study recommended in 3-6 months to confirm stability - Medical Decision Making Patient presents to the hospital signs or symptoms of previous pancreatitis. CT does not reveal any acute abnormality. Labs are also unremarkable without signs of leukocytosis. Patient received IV Dilaudid, Zofran, and normal saline in the ED. - Differential Diagnosis gastroenteritis, pancreatitis, diverticulitis, obstruction Critical Care Time: No Critical care attestation.: If time is entered above; I have spent that time in minutes in the direct care of this critically ill patient, excluding procedure time. ED Disposition Clinical Impression: Epigastric pain, Vomiting, History of pancreatitis Disposition: TO HOME OR SELFCARE Is pt being admited?: No Does the pt Need Aspirin: No Condition: Stable Instructions: Abdominal Pain (ED), Pancreatitis (ED) Additional Instructions: Take the medication as prescribed. Follow up with your doctor for further treatment. Return if symptoms worsen. Prescriptions: oxyCODONE /ACETAMINOPHEN [Percocet 5/325] 1 tab PO Q4HR #20 tab Promethazine [Phenergan TAB] 25 mg PO Q6HR PRN #30 tab PRN Reason: Nausea Referrals: PRIMARY CARE, [Primary Care Provider] - 3-5 Days Time of Disposition: 05:54
[2017-01-09] MEDS ORDERED: NACL ONE (03:19)
[2017-01-09 04:25] LABS: Bilirubin,Urine NEG (Negative); Blood,Urine NEG (Negative); Ketones,Urine NEG (Negative); Leukocyte Esterase,Urine NEG (Negative); Mucus,Urine FEW /HPF; Nitrite,Urine NEG (Negative); Protein,Urine <15 mg/dL mg/dL (Negative)
[2017-01-09 04:53] LABS: WBC,Urine < 1.0 /HPF (0.0-6.0)
[2017-01-09 05:34] VITALS: BP 118/70
--- NOTE | 2017-01-09 08:06 | Cat Scan Report ---
FINAL REPORT EXAM: CT ABDOMEN PELVIS W CON HISTORY: epigatic pain,n,v,d fever, hx of pancreatitis, TECHNIQUE: Routine axial imaging was obtained of the abdomen and pelvis following the intravenous injection of 100 cc of Omnipaque 300. Comparison is made study of 10/03/2016. Sagittal and coronal reconstructions were reviewed. FINDINGS: Images through the lung bases reveal 9.2 millimeter juxtapleural noncalcified nodule in the right lower lobe. There are no infiltrates or effusions. The gallbladder has been removed. The liver, pancreas, spleen, and adrenal glands appear normal. The kidneys enhance normally. There is a 3.9 cm cortical cyst in the right kidney. The vascular structures enhance normally. The bowel loops are normal in caliber and course. There is a small amount of residual contrast in the colon. The appendix has been removed. There is no evidence of free fluid or adenopathy. The prostate gland and bladder appear normal. There is no evidence of adenopathy. The skeletal structures do not show any acute changes. There is a small ventral midline abdominal hernia measuring up to 3.7 cm in dimension. It contains omental fat. IMPRESSION: Cholecystectomy. No acute process in the abdomen and pelvis. Small midline ventral hernia containing omental fat. 3.9 cm cortical cyst in the right kidney. Appendectomy. 9.2 millimeter noncalcified juxtapleural nodule in the right lung base. Follow-up study recommended 3-6 months to confirm stability.
== END 2017-01-09 06:09 | disposition home or self-care (01) ==
LOC: ED 00:39
DX: R10.13 Epigastric pain (principal); R11.2 Nausea with vomiting, unspecified
CPT/HCPCS: 36415; 36569; 74177; 80053; 81001; 83690; 85025; 96361; 96374; 96375; 96376; 99284; J1170; J2405; J7030; Q9967

== ENCOUNTER 2017-02-10 01:20 | Emergency (ER) | payer BC ==
[2017-02-10 02:30] LABS: Basophils % (Auto) 0.8 % (0.0-1.8); Eosinophils % (Auto) 3.1 % (0.0-4.3); Hematocrit 36.4 % (35.5-45.6); Hemoglobin 12.1 gm/dl (11.8-15.2); Mean Corpuscular HGB Conc 33 % (32-34); Mean Corpuscular Hemoglobin 28 pg (28-32); Mean Corpuscular Volume 83 fl (84-94); Platelet Count 327 K/mm3 (140-440); Red Cell Distribution Width 16.2 % (13.2-15.2); White Blood Count 11.7 K/mm3 (4.5-11.0)
[2017-02-10 02:53] LABS: Alanine Aminotransferase 25 units/L (7-56); Albumin 4.5 g/dL (3.9-5); Albumin/Globulin Ratio 1.6 %; Alkaline Phosphatase 84 units/L (35-129); Anion Gap 21 mmol/L; BUN/Creatinine Ratio 19; Blood Urea Nitrogen 13 mg/dL (9-20); Calcium 9.8 mg/dL (8.4-10.2); Carbon Dioxide 24 mmol/L (22-30); Chloride 99.1 mmol/L (98-107); Glucose 148 mg/dL (75-100); Lipase 66 units/L (13-60); Sodium 140 mmol/L (137-145); Total Protein 7.4 g/dL (6.3-8.2)
[2017-02-10] MEDS ORDERED: ZOFRAN IV ONE (04:05)
[2017-02-10] MEDS ORDERED: NACL 0.9% 1000 ML 1,000 ML IV ONE (04:05)
[2017-02-10 04:22] VITALS: BP 106/56
== END 2017-02-10 05:34 ==
LOC: ED 01:20
DX: R10.9 Unspecified abdominal pain (principal); R11.2 Nausea with vomiting, unspecified; Z53.21 Procedure and treatment not carried out due to patient leaving prior to being seen by health care provider
CPT/HCPCS: 36415; 80053; 83690; 85025

== ENCOUNTER 2017-06-07 22:01 | Emergency (ER) | payer BC ==
[2017-06-07 23:09] LABS: Basophils # (Auto) 0.1 K/mm3 (0.0-0.1); Basophils % (Auto) 0.5 % (0.0-1.8); Eosinophils # (Auto) 0.3 K/mm3 (0.0-0.4); Eosinophils % (Auto) 3.3 % (0.0-4.3); Hematocrit 33.8 % (35.5-45.6); Hemoglobin 10.6 gm/dl (11.8-15.2); Lymphocytes # (Auto) 1.7 K/mm3 (1.2-5.4); Lymphocytes % (Auto) 16.3 % (13.4-35.0); Mean Corpuscular HGB Conc 31 % (32-34); Mean Corpuscular Hemoglobin 24 pg (28-32); Mean Corpuscular Volume 77 fl (84-94); Monocytes % (Auto) 9.5 % (0.0-7.3); Platelet Count 466 K/mm3 (140-440); Red Blood Count 4.38 M/mm3 (3.65-5.03); Red Cell Distribution Width 19.2 % (13.2-15.2)
[2017-06-07 23:40] LABS: Alanine Aminotransferase 21 units/L (7-56); Albumin 4.3 g/dL (3.9-5); BUN/Creatinine Ratio 7; Blood Urea Nitrogen 8 mg/dL (9-20); Calcium 9.4 mg/dL (8.4-10.2); Hemolysis Index 2; Lipase 59 units/L (13-60)
[2017-06-08] MEDS ORDERED: NACL 0.9% 1000 ML 1,000 ML IV ONE (03:28)
[2017-06-08] MEDS ORDERED: ZOFRAN IV ONE (03:28)
[2017-06-08] MEDS ORDERED: PEPCID IV ONE (03:28)
[2017-06-08] MEDS ORDERED: BENTYL IM ONE (03:28)
[2017-06-08] MEDS ORDERED: NACL ONE (03:38)
[2017-06-08 04:03] LABS: Bacteria,Urine 1+ /HPF (Negative); Bilirubin,Urine NEG (Negative); Blood,Urine NEG (Negative); Color,Urine Yellow (Yellow); Mucus,Urine FEW /HPF; Protein,Urine <15 mg/dL mg/dL (Negative); Urobilinogen,Urine < 2.0 mg/dL (<2.0)
--- NOTE | 2017-06-08 04:09 | Emergency Department Report ---
ED N/V/D HPI - General Chief complaint: Abdominal Pain Stated complaint: ABD PN Time Seen by Provider: 06/08/17 03:04 Source: patient, family Mode of arrival: Ambulatory Limitations: No Limitations - History of Present Illness Initial comments: Patient is a 37-year-old male who is presenting with 3 days of nausea vomiting diarrhea. Patient states he also has had a fever as well. Patient states pain is 9 out of 10 located in the left upper quadrant with radiation around to the left back. Patient states he has a history of congestive heart failure diabetes hypertension and atrial fibrillation. Patient states that he believes is very dehydrated as Dry mouth currently. Patient state last 3 days he's been able to keep nothing down and said multiple episodes of diarrhea. Patient denies any blood in his vomit or his stool. - Related Data Home Medications Medication Instructions Recorded Confirmed Last Taken Apixaban [Eliquis] 5 mg PO BID 10/14/16 12/02/16 10/13/16 Citalopram Hydrobromide [celeXA] 40 mg PO DAILY 10/14/16 12/02/16 10/13/16 Fenofibrate [Lofibra] 160 mg PO QDAY 10/14/16 12/02/16 10/13/16 Insulin Glargine [Lantus] 20 unit SUB-Q QHS 10/14/16 12/02/16 10/13/16 Insulin Lispro [Humalog 100 10 units SQ TID 10/14/16 12/02/16 10/13/16 UNITS/ML Kwikpen] L.acidoph,Paracasei, B.lactis 1 each PO BID 10/14/16 12/02/16 10/13/16 [Probiotic] Levothyroxine [Synthroid] 25 mcg PO QAM 10/14/16 12/02/16 10/13/16 Metoprolol Xl [Metoprolol 25 mg PO BID 10/14/16 12/02/16 10/13/16 SUCCINATE ER TAB] Nortriptyline HCl [Pamelor] 25 mg PO DAILY 10/14/16 12/02/16 10/13/16 Ondansetron [Zofran Odt] 4 mg PO PRN 10/14/16 12/02/16 10/13/16 Pantoprazole [Protonix] 40 mg PO QDAY 10/14/16 12/02/16 10/13/16 Pregabalin [Lyrica] 200 mg PO BID 10/14/16 12/02/16 10/13/16 Quetiapine Fumarate [SEROquel] 50 mg PO QDAY 10/14/16 12/02/16 10/13/16 Ranitidine HCl [Zantac 150 MG TAB] 300 mg PO DAILY 10/14/16 12/02/16 10/13/16 Ropinirole HCl [Requip] 50 mg PO QHS 10/14/16 12/02/16 10/13/16 Topiramate [Topamax] 50 mg PO DAILY 10/14/16 12/02/16 10/13/16 busPIRone [Buspar] 15 mg PO BID 10/14/16 12/02/16 10/13/16 methOCARBAMOL [Robaxin TAB] 500 mg PO BID 10/14/16 12/02/16 10/13/16 ALPRAZolam [Xanax TAB] 0.5 mg PO BID PRN 12/02/16 12/02/16 Unknown Quetiapine Fumarate [Seroquel] 300 mg PO ONCE 12/02/16 12/02/16 Unknown Previous Rx's Medication Instructions Recorded Last Taken Type HYDROcodone/APAP 5-325 [[place] 1 each PO Q6HR PRN #10 tablet 12/02/16 Unknown Rx 5-325 mg TAB] Promethazine [Phenergan TAB] 25 mg PO Q6HR PRN #30 tab 01/09/17 Unknown Rx oxyCODONE /ACETAMINOPHEN [Percocet 1 tab PO Q4HR #20 tab 01/09/17 Unknown Rx 5/325] Allergies Allergy/AdvReac Type Severity Reaction Status Date / Time meperidine HCl [From Demerol] Allergy Anaphylaxis Verified 10/14/16 04:15 Penicillins Allergy Seizure Verified 10/14/16 04:15 acetaminophen [From Percocet] AdvReac Unknown Verified 10/14/16 04:15 ketorolac tromethamine AdvReac Seizure Verified 10/14/16 04:15 [From Toradol] metoclopramide HCl AdvReac Unknown Verified 10/14/16 04:15 [From Reglan] morphine AdvReac Hives Verified 10/14/16 04:15 oxycodone HCl [From Percocet] AdvReac Unknown Verified 10/14/16 04:15 prochlorperazine edisylate AdvReac Vomiting Verified 10/14/16 04:15 [From Compazine] prochlorperazine maleate AdvReac Vomiting Verified 10/14/16 04:15 [From Compazine] ED Review of Systems ROS: Stated complaint: ABD PN Other details as noted in HPI Comment: All other systems reviewed and negative ED Past Medical Hx - Past Medical History Previous Medical History?: Yes Hx Hypertension: Yes Hx Congestive Heart Failure: Yes Hx Diabetes: Yes Hx Pulmonary Embolism: Yes (diagnosed oct 2016) Hx GERD: Yes Additional medical history: Obesity. pancreatitis (triglyceride induced), c- diff, afib, enlarged heart. spinal menengitis. TIA. gout, neuropathy, scoliosis, hyperthyroid. Sleep APNEA, home oxygen use - Surgical History Past Surgical History?: Yes Hx Cholecystectomy: Yes Hx Appendectomy: Yes Additional Surgical History: colon resection secondary to benign mass causing bowel obstruction, GB, partial stomach resection - Social History Smoking Status: Former Smoker Substance Use Type: None - Medications Home Medications: Home Medications Medication Instructions Recorded Confirmed Last Taken Type Apixaban [Eliquis] 5 mg PO BID 10/14/16 12/02/16 10/13/16 History Citalopram Hydrobromide [celeXA] 40 mg PO DAILY 10/14/16 12/02/16 10/13/16 History Fenofibrate [Lofibra] 160 mg PO QDAY 10/14/16 12/02/16 10/13/16 History Insulin Glargine [Lantus] 20 unit SUB-Q QHS 10/14/16 12/02/16 10/13/16 History Insulin Lispro [Humalog 100 10 units SQ TID 10/14/16 12/02/16 10/13/16 History UNITS/ML Kwikpen] L.acidoph,Paracasei, B.lactis 1 each PO BID 10/14/16 12/02/16 10/13/16 History [Probiotic] Levothyroxine [Synthroid] 25 mcg PO QAM 10/14/16 12/02/16 10/13/16 History Metoprolol Xl [Metoprolol 25 mg PO BID 10/14/16 12/02/16 10/13/16 History SUCCINATE ER TAB] Nortriptyline HCl [Pamelor] 25 mg PO DAILY 10/14/16 12/02/16 10/13/16 History Ondansetron [Zofran Odt] 4 mg PO PRN 10/14/16 12/02/16 10/13/16 History Pantoprazole [Protonix] 40 mg PO QDAY 10/14/16 12/02/16 10/13/16 History Pregabalin [Lyrica] 200 mg PO BID 10/14/16 12/02/16 10/13/16 History Quetiapine Fumarate [SEROquel] 50 mg PO QDAY 10/14/16 12/02/16 10/13/16 History Ranitidine HCl [Zantac 150 MG TAB] 300 mg PO DAILY 10/14/16 12/02/16 10/13/16 History Ropinirole HCl [Requip] 50 mg PO QHS 10/14/16 12/02/16 10/13/16 History Topiramate [Topamax] 50 mg PO DAILY 10/14/16 12/02/16 10/13/16 History busPIRone [Buspar] 15 mg PO BID 10/14/16 12/02/16 10/13/16 History methOCARBAMOL [Robaxin TAB] 500 mg PO BID 10/14/16 12/02/16 10/13/16 History ALPRAZolam [Xanax TAB] 0.5 mg PO BID PRN 12/02/16 12/02/16 Unknown History HYDROcodone/APAP 5-325 [[place] 1 each PO Q6HR PRN #10 tablet 12/02/16 Unknown Rx 5-325 mg TAB] Quetiapine Fumarate [Seroquel] 300 mg PO ONCE 12/02/16 12/02/16 Unknown History Promethazine [Phenergan TAB] 25 mg PO Q6HR PRN #30 tab 01/09/17 Unknown Rx oxyCODONE /ACETAMINOPHEN [Percocet 1 tab PO Q4HR #20 tab 01/09/17 Unknown Rx 5/325] ED Physical Exam - General Limitations: No Limitations General appearance: alert, in no apparent distress - Head Head exam: Present: atraumatic, normocephalic - Eye Eye exam: Present: normal appearance - ENT ENT exam: Present: mucous membranes moist - Neck Neck exam: Present: normal inspection - Respiratory Respiratory exam: Present: normal lung sounds bilaterally. Absent: respiratory distress, wheezes, rales - Cardiovascular Cardiovascular Exam: Present: regular rate, normal rhythm. Absent: systolic murmur, diastolic murmur, rubs, gallop - GI/Abdominal GI/Abdominal exam: Present: soft, distended, tenderness (patient has tenderness in the left upper quadrant. Patient has a midline scar from the epigastrium to the umbilicus. The scar is well healed. Patient has decreased bowel sounds), normal bowel sounds, hypoactive bowel sounds. Absent: guarding, rebound, rigid - Rectal Rectal exam: Present: deferred - Extremities Exam Extremities exam: Present: normal inspection - Back Exam Back exam: Present: normal inspection - Neurological Exam Neurological exam: Present: alert, oriented X3 - Psychiatric Psychiatric exam: Present: normal affect, normal mood - Skin Skin exam: Present: warm, dry, intact, normal color. Absent: rash ED Course - Reevaluation(s) Reevaluation #1: 06/08/17 04:05 Patient is a 37-year-old gentleman who states he's had 3 days of nausea vomiting diarrhea. My initial assessment was that the patient did have some discomfort and some hypoactive bowel sounds and good possibly have a partial small bowel obstruction. Patient's had multiple abdominal surgeries including a tumor removal and gallbladder removal and appendix removal. Patient was to have CT after her blood work returned. Patient was adamant that he get narcotics I explained that narcotics would be held at this time because of the possibility of a possible obstruction. Alternatives to narcotics were given to the patient insisted dental Pepcid and I would have given Toradol with the patient stated he was unhappy with his care and wanted to leave. We explained patient could have a serious medical condition that could even result in patient signed and stated he wanted to go to another hospital. Patient be discharged AGAINST MEDICAL ADVICE. ED Medical Decision Making - Lab Data Result diagrams: 06/07/17 22:41 06/07/17 22:41 Critical care attestation.: If time is entered above; I have spent that time in minutes in the direct care of this critically ill patient, excluding procedure time. ED Disposition Clinical Impression: Abdominal pain Disposition: DC-07 LEFT AGAINST MED ADVICE Is pt being admited?: No Does the pt Need Aspirin: No Condition: Stable
== END 2017-06-08 04:00 | disposition left against medical advice (07) ==
LOC: ED 22:01
DX: R10.9 Unspecified abdominal pain (principal); R11.2 Nausea with vomiting, unspecified; R19.7 Diarrhea, unspecified; I11.0 Hypertensive heart disease with heart failure; E11.9 Type 2 diabetes mellitus without complications; K21.9 Gastro-esophageal reflux disease without esophagitis; Z90.49 Acquired absence of other specified parts of digestive tract; Z86.711 Personal history of pulmonary embolism; Z88.0 Allergy status to penicillin; Z88.5 Allergy status to narcotic agent; Z88.8 Allergy status to other drugs, medicaments and biological substances; Z87.891 Personal history of nicotine dependence
CPT/HCPCS: 36415; 80053; 81001; 83690; 85025; 96361; 96374; 96375; 99283; J0500; J2405; J7030